=== PATIENT | female | born 1970 | race Caucasian/White ===

== ENCOUNTER 2017-05-17 00:47 | Inpatient (IN) | payer MEDICAID, OTHER ==
[~2017-05-17] VITALS: Ht 160 cm; Wt 74.7 kg
[2017-05-17] VITALS (10 sets, daily range): BP systolic 100–156; BP diastolic 55–82
[2017-05-17] MEDS ORDERED: SODIUM CHLORIDE 0.9% 1,000 ML IV ONE (01:25)
[2017-05-17] MEDS ORDERED: SODIUM CHLORIDE FLUSH 10ML SYR IVF ONE (01:30)
[2017-05-17] MEDS ORDERED: PANTOPRAZOLE 40 MG IV IVPush STA (01:42)
[2017-05-17] MEDS ORDERED: PANTOPRAZOLE 40 MG IV ONE (01:47)
[2017-05-17] MEDS ORDERED: MORPHINE SULFATE 4 MG/ML, 1ML ONE (01:47)
[2017-05-17] MEDS ORDERED: ONDANSETRON 2MG/ML, 2ML ONE (01:48)
[2017-05-17 01:52] LABS: INTERNATIONAL NORMALIZED RATIO 1.21 (0.93-1.1); PROTHROMBIN TIME 12.4 Seconds (9.6-11.5)
[2017-05-17 01:55] LABS: ALANINE AMINOTRANSFERASE 18 U/L (12-78); ALBUMIN 3.4 g/dL (3.4-5.0); ANION GAP 12 mmol/L (5-15); CALCIUM 8.2 mg/dL (8.5-10.1); CHLORIDE 110 mmol/L (98-107)
[2017-05-17 01:58] LABS: ALKALINE PHOSPHATASE 99 U/L (45-117); BILIRUBIN,TOTAL 1.1 mg/dL (0.2-1.0); TOTAL PROTEIN 8.3 g/dL (6.4-8.2)
[2017-05-17] MEDS ORDERED: MORPHINE SULFATE 4 MG/ML, 1ML IVPush PRN ×2 (02:00→03:00)
[2017-05-17] MEDS ORDERED: ONDANSETRON 2MG/ML, 2ML IVPush ONE (02:00)
[2017-05-17] MEDS ORDERED: PLEASE ENTER ALLERGIES MC SCH (02:00)
[2017-05-17 02:31] LABS: BASOPHILS # (AUTO) 0.01 x10^3/uL (0-0.1); BASOPHILS % (AUTO) 0 % (0-1); EOSINOPHILS # (AUTO) 0.08 x10^3/uL (0-0.4); EOSINOPHILS % (AUTO) 1 % (1-7); LYMPHOCYTES % (AUTO) 21 % (22-44); MD SCAN; MEAN CORPUSCULAR HEMOGLOBIN 23.1 pg (27.0-34.8); MEAN CORPUSCULAR HGB CONC 31.5 g/dL (32.4-35.8); MEAN CORPUSCULAR VOLUME 73.4 fL (80-100); MEAN PLATELET VOLUME 9.5 fL (7.4-10.4); MONOCYTES # (AUTO) 0.33 x10^3/uL (0.2-0.8); MONOCYTES % (AUTO) 5 % (2-9); NEUTROPHILS # (AUTO) 4.41 x10^3/uL (1.8-6.8); NEUTROPHILS % (AUTO) 72 % (42-75); PLATELET COUNT 70 x10^3/uL (130-400); RED BLOOD COUNT 3.36 x10^6/uL (3.82-5.3); RED CELL DISTRIBUTION WIDTH 24.1 % (9.6-15.2)
[2017-05-17] MEDS ORDERED: OCTREOTIDE 500 MCG in SODIUM CHLORIDE 0.9% 249 ML IV SCH (03:00)
[2017-05-17] MEDS ORDERED: ONDANSETRON 2MG/ML, 2ML IVPush PRN ×2 (03:00→15:30)
[2017-05-17] MEDS ORDERED: LORA1TAB PO (04:06)
[2017-05-17] MEDS ORDERED: POTA10TA6 PO (04:06)
[2017-05-17] MEDS ORDERED: SPIR25TA3 PO (04:06)
[2017-05-17] MEDS ORDERED: LACT10SO28 PO (04:06)
[2017-05-17] MEDS ORDERED: TRAZ50TA18 PO (04:06)
[2017-05-17] MEDS ORDERED: PANT40TA3 PO (04:06)
[2017-05-17] MEDS ORDERED: FERR325T18 PO (04:06)
[2017-05-17] MEDS ORDERED: FOLI-17 PO (04:06)
[2017-05-17] MEDS ORDERED: PROP10TA PO (04:06)
[2017-05-17] MEDS ORDERED: THIA100T52 PO (04:06)
[2017-05-17] MEDS ORDERED: FURO-93 PO (04:06)
[2017-05-17] MEDS ORDERED: ONDA4TAB7 PO (04:06)
[2017-05-17] MEDS ORDERED: HYDR50TA13 PO (04:06)
[2017-05-17] MEDS ORDERED: GABA300C10 PO (04:06)
[2017-05-17] MEDS ORDERED: TRAM50TA2 PO (04:06)
[2017-05-17] MEDS ORDERED: POTASSIUM CHLORIDE 20 MEQ, MAGNESIUM SULFATE 2 GM, THIAMINE 100 MG, MVI ADULT 10 ML, FO... IV SCH (04:12)
[2017-05-17] MEDS ORDERED: PROMETHAZINE 25 MG/ML, 1ML IM PRN (04:30)
[2017-05-17] MEDS ORDERED: hydrALAzine 20 MG/ML, 1ML IVPush PRN (04:30)
[2017-05-17] MEDS ORDERED: ACETAMINOPHEN 325 MG TABLET PO PRN ×2 (04:30→15:30)
[2017-05-17] MEDS ORDERED: hydrOXyzine 50MG TABLET PO PRN (04:30)
[2017-05-17 05:37] LABS: % IRON SATURATION 4 % (20-55); IRON LEVEL 24 mcg/dL (50-170); TOTAL IRON BINDING CAPACITY 587 mcg/dL (250-450)
[2017-05-17] MEDS: morphine SULFATE 10 MG/ML, 1ML IVPush PRN ×4 (05:56→20:59)
[2017-05-17] MEDS: POTASSIUM CHLORIDE 20 MEQ, MAGNESIUM SULFATE 2 GM, MVI ADULT 10 ML, FOLIC ACID 1 MG in ... IV SCH (05:56)
[2017-05-17] MEDS: SODIUM CHLORIDE 0.9% 1,000 ML IV SCH (05:57)
[2017-05-17] MEDS: CEFTRIAXONE PMX 1GM/50ML 50 ML IV SCH ×2 (05:57→16:47)
[2017-05-17 06:43] LABS: CULTURE INDICATED? YES; MICROSCOPIC INDICATED
[2017-05-17] MEDS ORDERED: PANTOPRAZOLE 40 MG IV IVPush SCH (07:30)
[2017-05-17] MEDS: THIAMINE 100MG TABLET PO SCH (09:00)
[2017-05-17] MEDS: SPIRONOLACTONE 25 MG TABLET PO SCH ×2 (09:00→20:58)
[2017-05-17] MEDS: PROPRANOLOL 10 MG TABLET PO SCH ×3 (09:00→20:58)
[2017-05-17] MEDS: LACTULOSE 10 GM/15 ML UDC PO SCH ×2 (09:00→20:59)
[2017-05-17] MEDS ORDERED: POTASSIUM CHLORIDE 10 MEQ TABLET.ER PO SCH (09:00)
[2017-05-17] MEDS: FUROSEMIDE 20 MG TABLET PO SCH (09:00)
[2017-05-17] MEDS: IRON SUCROSE COMPLEX 100MG/5ML IV SCH (10:13)
[2017-05-17] MEDS: NICOTINE 14MG/24 HR PATCH.TD24 TD SCH (10:14)
[2017-05-17] MEDS: OCTREOTIDE 500 MCG in SODIUM CHLORIDE 0.9% 249 ML IV SCH ×2 (10:46→20:04)
[2017-05-17 14:01] LABS: HCG UR SG 1.018 (1.003-1.030)
[2017-05-17] MEDS ORDERED: PROPOFOL 50 ML ONE (14:37)
[2017-05-17] MEDS ORDERED: FENTANYL PF 100 MCG/2ML ONE (15:14)
[2017-05-17] MEDS ORDERED: hydrALAzine 20 MG/ML, 1ML IV PRN (15:30)
[2017-05-17] MEDS ORDERED: HYDROmorphone 1 MG/ML, 1ML IV PRN (15:30)
[2017-05-17] MEDS ORDERED: HYDROcodone/APAP 7.5-325MG/15ML UDC PO PRN (15:30)
[2017-05-17] MEDS ORDERED: PROMETHAZINE 25 MG/ML, 1ML IV PRN (15:30)
[2017-05-17] MEDS ORDERED: FENTANYL PF 100 MCG/2ML IV PRN (15:30)
[2017-05-17] MEDS ORDERED: OXYcodone 5 MG/5 ML ORAL.SOL UDC PO PRN (15:30)
[2017-05-17] MEDS ORDERED: EPHEDRINE 50 MG/ML, 1ML IVPush PRN (15:30)
[2017-05-17] MEDS ORDERED: LABETALOL 5MG/ML, 20ML IV PRN (15:30)
[2017-05-17] MEDS ORDERED: METOPROLOL 1 MG/ML, 5ML IV PRN (15:30)
[2017-05-17] MEDS ORDERED: PROMETHAZINE 12.5 MG SUPP PR PRN (15:30)
[2017-05-17] MEDS: TRAZODONE 50MG TABLET PO SCH (20:58)
[2017-05-17] MEDS: GABAPENTIN 300 MG CAPSULE PO SCH (20:58)
[2017-05-17] MEDS: LORazepam 1MG TABLET PO PRN (22:34)
[2017-05-18 00:18] VITALS: BP 121/75
[2017-05-18] MEDS: morphine SULFATE 10 MG/ML, 1ML IVPush PRN ×2 (01:24→04:51)
[2017-05-18] MEDS: CEFTRIAXONE PMX 1GM/50ML 50 ML IV SCH ×2 (05:00→11:18)
[2017-05-18 05:38] LABS: MEAN CORPUSCULAR HEMOGLOBIN 24.6 pg (27.0-34.8); MEAN CORPUSCULAR HGB CONC 32.2 g/dL (32.4-35.8); MEAN CORPUSCULAR VOLUME 76.3 fL (80-100); MEAN PLATELET VOLUME 9.1 fL (7.4-10.4); PLATELET COUNT 55 x10^3/uL (130-400); RED BLOOD COUNT 3.69 x10^6/uL (3.82-5.3); RED CELL DISTRIBUTION WIDTH 22.1 % (9.6-15.2)
[2017-05-18 06:11] LABS: CHLORIDE 108 mmol/L (98-107)
[2017-05-18] MEDS: OCTREOTIDE 500 MCG in SODIUM CHLORIDE 0.9% 249 ML IV SCH (06:15)
[2017-05-18 06:19] LABS: ALANINE AMINOTRANSFERASE 16 U/L (12-78); ALBUMIN 2.9 g/dL (3.4-5.0); ALKALINE PHOSPHATASE 84 U/L (45-117); ANION GAP 9 mmol/L (5-15); BILIRUBIN,TOTAL 1.3 mg/dL (0.2-1.0); CALCIUM 7.5 mg/dL (8.5-10.1); TOTAL PROTEIN 7.1 g/dL (6.4-8.2)
[2017-05-18 06:55] LABS: BASOPHILS # (AUTO) 0.02 x10^3/uL (0-0.1); BASOPHILS % (AUTO) 1 % (0-1); EOSINOPHILS # (AUTO) 0.14 x10^3/uL (0-0.4); EOSINOPHILS % (AUTO) 5 % (1-7); LYMPHOCYTES # (AUTO) 0.86 x10^3/uL (1-3.4); LYMPHOCYTES % (AUTO) 29 % (22-44); MD SCAN; MONOCYTES # (AUTO) 0.44 x10^3/uL (0.2-0.8); MONOCYTES % (AUTO) 15 % (2-9); NEUTROPHILS # (AUTO) 1.55 x10^3/uL (1.8-6.8); NEUTROPHILS % (AUTO) 52 % (42-75)
[2017-05-18 07:21] VITALS: BP 116/77
[2017-05-18] MEDS: IRON SUCROSE COMPLEX 100MG/5ML IV SCH (08:05)
[2017-05-18] MEDS: THIAMINE 100MG TABLET PO SCH (08:05)
[2017-05-18] MEDS: PROPRANOLOL 10 MG TABLET PO SCH ×2 (08:06→21:22)
[2017-05-18] MEDS: FUROSEMIDE 20 MG TABLET PO SCH (08:08)
[2017-05-18] MEDS: PANTOPRAZOLE 20MG TABLET PO SCH ×2 (08:08→20:00)
[2017-05-18] MEDS: SPIRONOLACTONE 25 MG TABLET PO SCH ×2 (08:08→21:21)
[2017-05-18] MEDS: NICOTINE 14MG/24 HR PATCH.TD24 TD SCH (08:09)
[2017-05-18] MEDS: LACTULOSE 10 GM/15 ML UDC PO SCH ×2 (08:12→21:21)
[2017-05-18] MEDS: ONDANSETRON 2MG/ML, 2ML IVPush PRN (08:25)
[2017-05-18] MEDS: SODIUM CHLORIDE 0.9% 1,000 ML IV SCH (11:19)
[2017-05-18 12:43] VITALS: BP 131/83
[2017-05-18] MEDS: POTASSIUM CHLORIDE 20 MEQ, MAGNESIUM SULFATE 2 GM, MVI ADULT 10 ML, FOLIC ACID 1 MG in ... IV SCH (13:18)
[2017-05-18 19:39] VITALS: BP 152/77
[2017-05-18] MEDS: TRAZODONE 50MG TABLET PO SCH (21:21)
[2017-05-18] MEDS: GABAPENTIN 300 MG CAPSULE PO SCH (21:21)
[2017-05-18] MEDS: LORazepam 1MG TABLET PO PRN (21:22)
[2017-05-19 00:55] VITALS: BP 108/65
[2017-05-19 04:56] LABS: MEAN CORPUSCULAR HEMOGLOBIN 24.2 pg (27.0-34.8); MEAN CORPUSCULAR HGB CONC 31.5 g/dL (32.4-35.8); MEAN CORPUSCULAR VOLUME 76.8 fL (80-100); MEAN PLATELET VOLUME 9.3 fL (7.4-10.4); PLATELET COUNT 53 x10^3/uL (130-400); RED BLOOD COUNT 3.55 x10^6/uL (3.82-5.3); RED CELL DISTRIBUTION WIDTH 22.3 % (9.6-15.2)
[2017-05-19 04:58] LABS: CHLORIDE 108 mmol/L (98-107)
[2017-05-19] MEDS: SODIUM CHLORIDE 0.9% 1,000 ML IV SCH ×2 (05:00→05:48)
[2017-05-19 05:03] LABS: ALBUMIN 2.8 g/dL (3.4-5.0); ANION GAP 10 mmol/L (5-15); CALCIUM 7.8 mg/dL (8.5-10.1); CREATININE 0.69 mg/dL (0.55-1.02)
[2017-05-19 06:03] LABS: BASOPHILS # (AUTO) 0.03 x10^3/uL (0-0.1); BASOPHILS % (AUTO) 1 % (0-1); EOSINOPHILS # (AUTO) 0.11 x10^3/uL (0-0.4); EOSINOPHILS % (AUTO) 3 % (1-7); LYMPHOCYTES # (AUTO) 0.83 x10^3/uL (1-3.4); LYMPHOCYTES % (AUTO) 19 % (22-44); MD MORPH REVIEW ONLY; MONOCYTES # (AUTO) 0.45 x10^3/uL (0.2-0.8); MONOCYTES % (AUTO) 11 % (2-9); NEUTROPHILS # (AUTO) 2.88 x10^3/uL (1.8-6.8); NEUTROPHILS % (AUTO) 67 % (42-75)
[2017-05-19 06:04] LABS: ANISOCYTOSIS 2+; HYPOCHROMIA 1+; MICROCYTOSIS 2+; POLYCHROMASIA 1+
[2017-05-19 06:05] LABS: <PLATELET ESTIMATE> DECREASED; <PLT MORPHOLOGY> NORMAL PLT MORPH
[2017-05-19] MEDS ORDERED: CIPR500T3 PO (07:34)
[2017-05-19] MEDS ORDERED: PANT40TA3 PO (07:34)
[2017-05-19 08:15] VITALS: BP 107/68
[2017-05-19] MEDS: LACTULOSE 10 GM/15 ML UDC PO SCH (09:00)
[2017-05-19] MEDS: NICOTINE 14MG/24 HR PATCH.TD24 TD SCH (09:22)
[2017-05-19] MEDS: PROPRANOLOL 10 MG TABLET PO SCH (09:23)
[2017-05-19] MEDS: THIAMINE 100MG TABLET PO SCH (09:23)
[2017-05-19] MEDS: SPIRONOLACTONE 25 MG TABLET PO SCH (09:23)
[2017-05-19] MEDS: CEFTRIAXONE PMX 1GM/50ML 50 ML IV SCH (09:23)
[2017-05-19] MEDS: FUROSEMIDE 20 MG TABLET PO SCH (09:23)
[2017-05-19] MEDS: PANTOPRAZOLE 20MG TABLET PO SCH (09:23)
[2017-05-19] MEDS: IRON SUCROSE COMPLEX 100MG/5ML IV SCH (09:24)
[2017-05-19] MEDS: ONDANSETRON 2MG/ML, 2ML IVPush PRN (09:46)
== END 2017-05-19 13:51 | disposition home or self-care (01) | DRG 377 ==
LOC: ED 01:32 → EDIP 02:49 → 4EST 03:43
PROVIDERS: ADMIT Hospitalist; ATTEND Hospitalist
PROC: 0DJ08ZZ Inspection of Upper Intestinal Tract, Via Natural or Artificial Opening Endoscopic (ICD-10-PCS; 2017-05-17)
PROC: 30233N1 Transfusion of Nonautologous Red Blood Cells into Peripheral Vein, Percutaneous Approach (ICD-10-PCS; principal; 2017-05-17 16:00)
DX: K29.21 Alcoholic gastritis with bleeding (principal); E43 Unspecified severe protein-calorie malnutrition; I81 Portal vein thrombosis; I85.11 Secondary esophageal varices with bleeding; D68.9 Coagulation defect, unspecified; K76.6 Portal hypertension; D69.6 Thrombocytopenia, unspecified; D62 Acute posthemorrhagic anemia; F10.239 Alcohol dependence with withdrawal, unspecified; D50.9 Iron deficiency anemia, unspecified; K70.11 Alcoholic hepatitis with ascites; K70.31 Alcoholic cirrhosis of liver with ascites; F17.210 Nicotine dependence, cigarettes, uncomplicated; G89.29 Other chronic pain; I10 Essential (primary) hypertension; Z82.49 Family history of ischemic heart disease and other diseases of the circulatory system
CPT/HCPCS: 36415; 36430; 74022; 80048; 80053; 80307; 81001; 81025; 82040; 83540; 83550; 83690; 83735; 84100; 85014; 85018; 85025; 85610; 85730; 86850; 86900; 86923; 87086; 96374; 96375; J0696; J1756; J2354; J2405; J2704; J3010; J3475; J3480; J7042; C9113; J2270; J7030; J7050; P9016

== ENCOUNTER 2017-12-10 23:41 | Inpatient (IN) | payer MEDICAID ==
[~2017-12-10] VITALS: Ht 160 cm; Wt 84.0 kg
[~2017-12-10 23:41] MED LIST: CIPR500T3 PO; FERR325T18 PO; FOLI-17 PO; FURO-93 PO; GABA300C10 PO; HYDR50TA13 PO; LACT10SO28 PO; LORA1TAB PO; ONDA4TAB7 PO; PANT40TA3 PO; POTA10TA6 PO; PROP10TA PO; SPIR25TA5 PO; THIA100T52 PO; TRAM50TA2 PO; TRAZ-136 PO
[2017-12-10] MEDS ORDERED: OCTREOTIDE 500 MCG in SODIUM CHLORIDE 0.9% 249 ML IV PRN (23:43)
[2017-12-10] MEDS ORDERED: SODIUM CHLORIDE 0.9% 1,000 ML IV ONE (23:43)
[2017-12-10] MEDS: PANTOPRAZOLE 80 MG in SODIUM CHLORIDE 0.9% 100 ML IV SCH (23:43)
[2017-12-10] MEDS ORDERED: METOCLOPRAMIDE 5 MG/ML, 2ML ONE (23:47)
[2017-12-10] MEDS ORDERED: PANTOPRAZOLE 40 MG IV ONE (23:59)
[2017-12-10] MEDS ORDERED: OCTREOTIDE 100MCG/ML, 1ML (0.1MG/ML) ONE (23:59)
[2017-12-11] VITALS (20 sets, daily range): BP systolic 100–137; BP diastolic 48–74
[2017-12-11] MEDS ORDERED: PANTOPRAZOLE 40 MG IV IVPush ONE
[2017-12-11] MEDS ORDERED: SODIUM CHLORIDE 0.9% 1,000ML IVBOLUS ONE
[2017-12-11] MEDS ORDERED: SODIUM CHLORIDE FLUSH 10ML SYR IVF ONE
[2017-12-11] MEDS ORDERED: OCTREOTIDE 100MCG/ML, 1ML (0.1MG/ML) IV ONE
[2017-12-11] MEDS ORDERED: METOCLOPRAMIDE 5 MG/ML, 2ML IVPush ONE
[2017-12-11] MEDS ORDERED: POTA20TA89 PO (00:06)
[2017-12-11 00:17] LABS: MEAN CORPUSCULAR HEMOGLOBIN 25.7 pg (27.0-34.8); MEAN CORPUSCULAR HGB CONC 32.3 g/dL (32.4-35.8); MEAN CORPUSCULAR VOLUME 79.8 fL (80-100); MEAN PLATELET VOLUME 8.5 fL (7.4-10.4); PLATELET COUNT 150 x10^3/uL (130-400); RED BLOOD COUNT 2.15 x10^6/uL (3.82-5.3)
[2017-12-11 00:20] LABS: RED CELL DISTRIBUTION WIDTH 21.5 % (9.6-15.2)
[2017-12-11 00:25] LABS: ALANINE AMINOTRANSFERASE 26 U/L (12-78); ALBUMIN 2.3 g/dL (3.4-5.0); ANION GAP 13 mmol/L (5-15); CALCIUM 7.6 mg/dL (8.5-10.1); CHLORIDE 107 mmol/L (98-107); CREATININE 1.13 mg/dL (0.55-1.02)
[2017-12-11 00:27] LABS: ALKALINE PHOSPHATASE 82 U/L (45-117); BILIRUBIN,TOTAL 1.2 mg/dL (0.2-1.0); TOTAL PROTEIN 5.6 g/dL (6.4-8.2)
[2017-12-11 00:36] LABS: INTERNATIONAL NORMALIZED RATIO 1.78 (0.93-1.1); PROTHROMBIN TIME 18.3 Seconds (9.6-11.5)
[2017-12-11 00:40] LABS: BASOPHILS # (AUTO) 0.04 x10^3/uL (0-0.1); BASOPHILS % (AUTO) 0 % (0-1); EOSINOPHILS # (AUTO) 0.01 x10^3/uL (0-0.4); EOSINOPHILS % (AUTO) 0 % (1-7); LYMPHOCYTES # (AUTO) 2.68 x10^3/uL (1-3.4); LYMPHOCYTES % (AUTO) 14 % (22-44); MD MORPH REVIEW ONLY; MONOCYTES # (AUTO) 1.03 x10^3/uL (0.2-0.8); MONOCYTES % (AUTO) 5 % (2-9); NEUTROPHILS # (AUTO) 16.09 x10^3/uL (1.8-6.8); NEUTROPHILS % (AUTO) 81 % (42-75)
[2017-12-11 00:41] LABS: ANISOCYTOSIS 2+; MICROCYTOSIS 2+
[2017-12-11 00:42] LABS: HYPOCHROMIA 1+; POLYCHROMASIA 1+
[2017-12-11 00:43] LABS: <PLATELET ESTIMATE> ADEQUATE; <PLT MORPHOLOGY> NORMAL PLT MORPH
[2017-12-11] MEDS ORDERED: LORazepam 2 MG/ML, 1ML IVPush PRN ×2 (01:00→08:00)
[2017-12-11] MEDS ORDERED: LORazepam 2 MG/ML, 1ML ONE (01:00)
[2017-12-11] MEDS ORDERED: CEFTRIAXONE 500 MG in DEXTROSE 5% 50 ML IV SCH (01:00)
[2017-12-11] MEDS: PANTOPRAZOLE 80 MG in SODIUM CHLORIDE 0.9% 100 ML IV SCH ×4 (01:58→19:31)
[2017-12-11] MEDS ORDERED: OCTREOTIDE 500 MCG in DEXTROSE 5% 249 ML IV SCH (01:58)
[2017-12-11] MEDS ORDERED: OCTREOTIDE 50 MCG/ML, 1ML (0.05MG/ML) IV ONE (02:00)
[2017-12-11] MEDS ORDERED: ONDANSETRON 2MG/ML, 2ML IV PRN ×2 (02:00→10:00)
[2017-12-11] MEDS ORDERED: PHYTONADIONE 10 MG/ML, 1ML SQ ONE (02:00)
[2017-12-11] MEDS ORDERED: LORazepam 2 MG/ML, 1ML IV PRN ×3 (02:00)
[2017-12-11 06:24] LABS: ANION GAP 8 mmol/L (5-15); CALCIUM 6.4 mg/dL (8.5-10.1); CHLORIDE 113 mmol/L (98-107); CREATININE 0.85 mg/dL (0.55-1.02)
[2017-12-11 06:43] LABS: BASOPHILS # (AUTO) 0.02 x10^3/uL (0-0.1); BASOPHILS % (AUTO) 0 % (0-1); EOSINOPHILS # (AUTO) 0.01 x10^3/uL (0-0.4); EOSINOPHILS % (AUTO) 0 % (1-7); LYMPHOCYTES # (AUTO) 1.43 x10^3/uL (1-3.4); LYMPHOCYTES % (AUTO) 13 % (22-44); MD SCAN; MEAN CORPUSCULAR HEMOGLOBIN 28.7 pg (27.0-34.8); MEAN CORPUSCULAR HGB CONC 33.7 g/dL (32.4-35.8); MEAN CORPUSCULAR VOLUME 85.1 fL (80-100); MEAN PLATELET VOLUME 7.9 fL (7.4-10.4); MONOCYTES % (AUTO) 7 % (2-9); NEUTROPHILS % (AUTO) 80 % (42-75); PLATELET COUNT 57 x10^3/uL (130-400); RED BLOOD COUNT 3.01 x10^6/uL (3.82-5.3); RED CELL DISTRIBUTION WIDTH 18.1 % (9.6-15.2)
[2017-12-11] MEDS ORDERED: MIDAZOLAM 1 MG/ML, 2ML ONE (09:30)
[2017-12-11] MEDS ORDERED: FENTANYL PF 100 MCG/2ML ONE (09:30)
[2017-12-11] MEDS ORDERED: SUCCINYLCHOLINE 20 MG/ML, 10ML ONE (09:56)
[2017-12-11] MEDS ORDERED: PROPOFOL 10 MG/ML, 20ML ONE (09:56)
[2017-12-11] MEDS ORDERED: FENTANYL PF 100 MCG/2ML IV PRN (10:00)
[2017-12-11] MEDS ORDERED: MIDAZOLAM 1 MG/ML, 2ML IV PRN (10:00)
[2017-12-11] MEDS ORDERED: ONDANSETRON ODT 8 MG PO PRN (10:00)
[2017-12-11] MEDS ORDERED: CALCIUM CHLORIDE 13.6 MEQ in SODIUM CHLORIDE 0.9% 100 ML IV ONE (10:30)
[2017-12-11] MEDS ORDERED: MAGNESIUM SULFATE PMX 4GM/100M 100 ML IV ONE (10:30)
[2017-12-11] MEDS: CEFTRIAXONE 1,000 MG in SODIUM CHLORIDE 0.9% 50 ML IV SCH (11:23)
[2017-12-11] MEDS: OCTREOTIDE 500 MCG in SODIUM CHLORIDE 0.9% 249 ML IV SCH ×2 (11:28→21:33)
[2017-12-11] MEDS: LACTULOSE 20 GM/30 ML UDC PO SCH (11:30)
[2017-12-11] MEDS: PHYTONADIONE 10 MG/ML, 1ML SQ SCH (11:31)
[2017-12-11] MEDS: POTASSIUM CHLORIDE 20 MEQ, MAGNESIUM SULFATE 1 GM, MVI ADULT 10 ML, THIAMINE 200 MG, FO... IV SCH (12:26)
[2017-12-11] MEDS ORDERED: LORazepam 1MG TABLET PO ONE (21:30)
[2017-12-12 04:19] LABS: ALANINE AMINOTRANSFERASE 46 U/L (12-78); ALBUMIN 2.2 g/dL (3.4-5.0); ANION GAP 8 mmol/L (5-15); CALCIUM 6.9 mg/dL (8.5-10.1); CHLORIDE 113 mmol/L (98-107); CREATININE 0.71 mg/dL (0.55-1.02)
[2017-12-12 04:22] LABS: ALKALINE PHOSPHATASE 62 U/L (45-117); BILIRUBIN,TOTAL 1.1 mg/dL (0.2-1.0); TOTAL PROTEIN 4.9 g/dL (6.4-8.2)
[2017-12-12 04:25] LABS: MEAN CORPUSCULAR HEMOGLOBIN 29.6 pg (27.0-34.8); MEAN CORPUSCULAR HGB CONC 34.1 g/dL (32.4-35.8); MEAN CORPUSCULAR VOLUME 86.7 fL (80-100); RED BLOOD COUNT 3.16 x10^6/uL (3.82-5.3); RED CELL DISTRIBUTION WIDTH 17.8 % (9.6-15.2)
[2017-12-12 04:47] LABS: INTERNATIONAL NORMALIZED RATIO 1.42 (0.93-1.1); PROTHROMBIN TIME 14.7 Seconds (9.6-11.5)
[2017-12-12] MEDS ORDERED: POTASSIUM CHLORIDE 40 MEQ in SODIUM CHLORIDE 0.9% 100 ML IV ONE (05:30)
[2017-12-12 05:42] LABS: BASOPHILS # (AUTO) 0.02 x10^3/uL (0-0.1); BASOPHILS % (AUTO) 0 % (0-1); EOSINOPHILS # (AUTO) 0.25 x10^3/uL (0-0.4); EOSINOPHILS % (AUTO) 5 % (1-7); LYMPHOCYTES # (AUTO) 1.09 x10^3/uL (1-3.4); LYMPHOCYTES % (AUTO) 22 % (22-44); MD SCAN; MEAN PLATELET VOLUME 8.7 fL (7.4-10.4); MONOCYTES # (AUTO) 0.38 x10^3/uL (0.2-0.8); MONOCYTES % (AUTO) 8 % (2-9); NEUTROPHILS # (AUTO) 3.23 x10^3/uL (1.8-6.8); NEUTROPHILS % (AUTO) 65 % (42-75)
[2017-12-12 05:44] LABS: PLATELET COUNT 29 x10^3/uL (130-400)
[2017-12-12] MEDS: OCTREOTIDE 500 MCG in SODIUM CHLORIDE 0.9% 249 ML IV SCH ×3 (06:17→19:41)
[2017-12-12] MEDS: PANTOPRAZOLE 80 MG in SODIUM CHLORIDE 0.9% 100 ML IV SCH (07:58)
[2017-12-12] MEDS ORDERED: SODIUM PHOSPHATE 20 MMOL in SODIUM CHLORIDE 0.9% 500 ML IV ONE (08:00)
[2017-12-12] MEDS: POTASSIUM CHLORIDE 20 MEQ TAB.ER.PRT PO SCH ×2 (08:00→20:32)
[2017-12-12] MEDS: LACTULOSE 20 GM/30 ML UDC PO SCH (08:36)
[2017-12-12] MEDS: PHYTONADIONE 10 MG/ML, 1ML SQ SCH (08:37)
[2017-12-12] MEDS: PANTOPRAZOLE 40 MG IV IVPush SCH ×2 (11:21→23:51)
[2017-12-12] MEDS: CEFTRIAXONE 1,000 MG in SODIUM CHLORIDE 0.9% 50 ML IV SCH (11:21)
[2017-12-12] MEDS ORDERED: LORazepam 1MG TABLET PO PRN (13:30)
[2017-12-12] MEDS: hydrOXyzine 50MG TABLET PO PRN (14:58)
[2017-12-12] MEDS: POTASSIUM CHLORIDE 20 MEQ, MAGNESIUM SULFATE 1 GM, MVI ADULT 10 ML, THIAMINE 200 MG, FO... IV SCH (17:32)
[2017-12-12 19:34] VITALS: BP 147/86
[2017-12-12] MEDS ORDERED: GABAPENTIN 300 MG CAPSULE PO SCH (21:00)
[2017-12-13 00:45] VITALS: BP 123/76
[2017-12-13] MEDS: hydrOXyzine 50MG TABLET PO PRN (05:00)
[2017-12-13 05:07] LABS: MEAN CORPUSCULAR HEMOGLOBIN 29.5 pg (27.0-34.8); MEAN CORPUSCULAR VOLUME 86.8 fL (80-100); RED BLOOD COUNT 3.21 x10^6/uL (3.82-5.3); RED CELL DISTRIBUTION WIDTH 18.3 % (9.6-15.2)
[2017-12-13 05:17] LABS: ANION GAP 9 mmol/L (5-15); CALCIUM 6.9 mg/dL (8.5-10.1); CHLORIDE 111 mmol/L (98-107); CREATININE 0.63 mg/dL (0.55-1.02)
[2017-12-13 05:29] LABS: MEAN PLATELET VOLUME 8.7 fL (7.4-10.4)
[2017-12-13 05:31] LABS: PLATELET COUNT 26 x10^3/uL (130-400)
[2017-12-13 05:46] LABS: BASOPHILS # (AUTO) 0.01 x10^3/uL (0-0.1); BASOPHILS % (AUTO) 0 % (0-1); EOSINOPHILS # (AUTO) 0.23 x10^3/uL (0-0.4); EOSINOPHILS % (AUTO) 5 % (1-7); LYMPHOCYTES % (AUTO) 19 % (22-44); MD SCAN; MONOCYTES # (AUTO) 0.39 x10^3/uL (0.2-0.8); MONOCYTES % (AUTO) 8 % (2-9); NEUTROPHILS # (AUTO) 3.24 x10^3/uL (1.8-6.8); NEUTROPHILS % (AUTO) 68 % (42-75)
[2017-12-13] MEDS: OCTREOTIDE 500 MCG in SODIUM CHLORIDE 0.9% 249 ML IV SCH (06:12)
[2017-12-13 06:50] VITALS: BP 131/80
[2017-12-13] MEDS: LACTULOSE 20 GM/30 ML UDC PO SCH (08:49)
[2017-12-13] MEDS: PHYTONADIONE 10 MG/ML, 1ML SQ SCH (08:49)
[2017-12-13] MEDS: CEFTRIAXONE 1,000 MG in SODIUM CHLORIDE 0.9% 50 ML IV SCH (10:37)
[2017-12-13] MEDS: PANTOPRAZOLE 40 MG IV IVPush SCH (10:43)
[2017-12-13] MEDS: POTASSIUM CHLORIDE 20 MEQ, MAGNESIUM SULFATE 1 GM, MVI ADULT 10 ML, THIAMINE 200 MG, FO... IV SCH (12:00)
[2017-12-13 12:10] VITALS: BP 124/81
[2017-12-13] MEDS ORDERED: PANT40TA3 PO (13:28)
== END 2017-12-13 17:27 | disposition home or self-care (01) | DRG 432 ==
LOC: ED 23:59 → EDIP 12-11 00:18 → CCU 12-11 02:31 → 4WST 12-12 13:18 → 4EST 12-12 18:12 → DCLOUNGE 12-13 17:15
PROVIDERS: ADMIT Family Medicine; ATTEND Family Medicine
PROC: 30233L1 Transfusion of Nonautologous Fresh Plasma into Peripheral Vein, Percutaneous Approach (ICD-10-PCS; 2017-12-11)
PROC: 30233N1 Transfusion of Nonautologous Red Blood Cells into Peripheral Vein, Percutaneous Approach (ICD-10-PCS; 2017-12-11)
PROC: 30233K1 Transfusion of Nonautologous Frozen Plasma into Peripheral Vein, Percutaneous Approach (ICD-10-PCS; 2017-12-11)
PROC: 02HV33Z Insertion of Infusion Device into Superior Vena Cava, Percutaneous Approach (ICD-10-PCS; 2017-12-11)
PROC: B548ZZA Ultrasonography of Superior Vena Cava, Guidance (ICD-10-PCS; 2017-12-11)
PROC: 06L38CZ Occlusion of Esophageal Vein with Extraluminal Device, Via Natural or Artificial Opening Endoscopic (ICD-10-PCS; principal; 2017-12-11 10:00)
DX: K70.30 Alcoholic cirrhosis of liver without ascites (principal); E43 Unspecified severe protein-calorie malnutrition; I85.11 Secondary esophageal varices with bleeding; R57.8 Other shock; D62 Acute posthemorrhagic anemia; D68.9 Coagulation defect, unspecified; E87.2 Acidosis; K76.6 Portal hypertension; R65.10 Systemic inflammatory response syndrome (SIRS) of non-infectious origin without acute organ dysfunction; K72.90 Hepatic failure, unspecified without coma; D69.59 Other secondary thrombocytopenia; E16.2 Hypoglycemia, unspecified; E83.51 Hypocalcemia; E86.1 Hypovolemia; K31.7 Polyp of stomach and duodenum; I95.9 Hypotension, unspecified; K31.89 Other diseases of stomach and duodenum; F10.20 Alcohol dependence, uncomplicated; F17.210 Nicotine dependence, cigarettes, uncomplicated; G89.29 Other chronic pain; I10 Essential (primary) hypertension; Z82.49 Family history of ischemic heart disease and other diseases of the circulatory system; Z86.718 Personal history of other venous thrombosis and embolism; Z88.0 Allergy status to penicillin; Z88.8 Allergy status to other drugs, medicaments and biological substances; Z88.1 Allergy status to other antibiotic agents; Z90.49 Acquired absence of other specified parts of digestive tract; Z68.32 Body mass index [BMI] 32.0-32.9, adult
CPT/HCPCS: 36415; 36430; 36556; 71045; 80048; 80053; 80307; 82140; 82306; 82330; 83605; 83690; 83735; 83970; 84100; 85014; 85018; 85025; 85610; 85730; 86850; 86900; 86923; 87040; 87081; 93005; 96361; 96374; 96375; G0378; J0696; J2250; J2354; J2704; J3010; J3411; J3430; J3475; J3480; J7060; C9113; J0330; J2060; J2765; J7030; J7040; J7050; P9016; P9017

== ENCOUNTER 2018-09-02 02:46 | Inpatient (IN) | payer MEDICAID ==
[~2018-09-02] VITALS: Ht 160 cm; Wt 69.9 kg
[~2018-09-02 02:46] MED LIST changes: +LASIX; +LORAZEPAM; +POTA20TA89 PO; +POTASSIUM; -PROP10TA PO; +PROP10TA16 PO; +TRAMADOL; -TRAZ-136 PO; +TRAZ50TA66 PO; +VITAMIN D
--- NOTE | 2018-09-02 02:59 | NUR ---
BIB [facility] FOR C/O BLOODY STOOL AND VOMITING BLOOD THIS AM. PT. REPORTS HX OF CIRRHOSIS AND ESOPHAGEAL VARICES. PT. STATES "I HAD 2 LARGE BEERS RIGHT BEFORE I CAME HERE." "I GO ON FUN WEEKENDS SOMETIMES, I DON'T ALWAYS DRINK ANYMORE." PT. PLACED ON CONTINUOUS PULSE OX AND B/P MONIOTRS. IV AND 300ML NS EN ROUTE. FSBS FOR EMS 161. SKIN PWD. PT. A&O X 4 WITH STRONG ETOH ODOR. CALL LIGHT IN REACH. ALL SAFETY MEASURES OBSERVED. AWAITING PROVIDER EVAL.
[2018-09-02] MEDS ORDERED: PANTOPRAZOLE 40 MG IV IVPush ONE (03:00)
[2018-09-02] MEDS ORDERED: ONDANSETRON ODT 4 MG PO ONE (03:00)
[2018-09-02] MEDS ORDERED: OCTREOTIDE 100MCG/ML, 1ML (0.1MG/ML) IV ONE (03:00)
--- NOTE | 2018-09-02 03:11 | NUR ---
DR. GROVES AT BS TO EVAL PT. AND DISCUSS POC.
[2018-09-02] MEDS ORDERED: PANTOPRAZOLE 40 MG IV ONE (03:24)
[2018-09-02] MEDS ORDERED: OCTREOTIDE 100MCG/ML, 1ML (0.1MG/ML) ONE (03:24)
[2018-09-02] MEDS ORDERED: ONDANSETRON ODT 4 MG ONE (03:24)
[2018-09-02 03:29] LABS: MEAN CORPUSCULAR HEMOGLOBIN 23.2 pg (27.0-34.8); MEAN CORPUSCULAR HGB CONC 30.9 g/dL (32.4-35.8); MEAN CORPUSCULAR VOLUME 75.3 fL (80-100); PLATELET COUNT 137 x10^3/uL (130-400); RED BLOOD COUNT 3.98 x10^6/uL (3.82-5.3); RED CELL DISTRIBUTION WIDTH 25.3 % (9.6-15.2)
[2018-09-02] MEDS ORDERED: MORPHINE SULFATE 4 MG/ML, 1ML IVPush PRN (03:30)
[2018-09-02 03:41] LABS: ALANINE AMINOTRANSFERASE 36 U/L (12-78); ALBUMIN 3.1 g/dL (3.4-5.0); ANION GAP 11 mmol/L (5-15); CHLORIDE 107 mmol/L (98-107)
[2018-09-02 03:43] LABS: ALKALINE PHOSPHATASE 144 U/L (45-117); BILIRUBIN,TOTAL 0.7 mg/dL (0.2-1.0); TOTAL PROTEIN 8.2 g/dL (6.4-8.2)
[2018-09-02 03:47] LABS: INTERNATIONAL NORMALIZED RATIO 1.26 (0.93-1.1); PROTHROMBIN TIME 13.1 Seconds (9.6-11.5)
--- NOTE | 2018-09-02 03:54 | NUR ---
PT. MEDICATED PER MAR. DENIES OTHER NEEDS AT THIS TIME. PLACED ON O2 PT. SAT DROPPED TO 88% WHEN SLEEPING. PT. HAS ALL MONITORS IN PLACE. CALL LIGHT IN REACH. ALL SAFETY MEASURES OBSERVED.
[2018-09-02 04:06] LABS: ANISOCYTOSIS 1+; BASOPHILS % (AUTO) 0 % (0-1); EOSINOPHILS % (AUTO) 3 % (1-7); HYPOCHROMIA 1+; LYMPHOCYTES # (AUTO) 1.67 x10^3/uL (1-3.4); LYMPHOCYTES % (AUTO) 25 % (22-44); MD MORPH REVIEW ONLY; MICROCYTOSIS 1+; MONOCYTES # (AUTO) 0.65 x10^3/uL (0.2-0.8); MONOCYTES % (AUTO) 10 % (2-9); NEUTROPHILS # (AUTO) 4.19 x10^3/uL (1.8-6.8); NEUTROPHILS % (AUTO) 62 % (42-75); POLYCHROMASIA 1+
[2018-09-02 04:07] LABS: <PLATELET ESTIMATE> ADEQUATE; <PLT MORPHOLOGY> NORMAL PLT MORPH; TARGET CELLS 1+
[2018-09-02] MEDS ORDERED: POTASSIUM CHLORIDE 20 MEQ in SODIUM CHLORIDE 0.9% 250 ML IV ONE (04:30)
[2018-09-02] MEDS ORDERED: MORPHINE SULFATE 4 MG/ML, 1ML ONE (04:40)
[2018-09-02] MEDS ORDERED: OCTREOTIDE 500 MCG in SODIUM CHLORIDE 0.9% 249 ML IV PRN (04:43)
--- NOTE | 2018-09-02 04:54 | NUR ---
CALLED PHARMACY TO ASK IF POTASSIUM IN NS AND OCTREOTIDE ARE COMPATABLE; PER PHARMACY THEY ARE MED REQUEST SENT TO PHARMACY.
[2018-09-02] MEDS ORDERED: LACT10SO28 PO (05:22)
[2018-09-02] MEDS ORDERED: POTA20TA89 PO (05:22)
[2018-09-02] MEDS ORDERED: CYCL-259 PO (05:22)
[2018-09-02] MEDS ORDERED: TRAZ50TA66 PO (05:22)
[2018-09-02] MEDS ORDERED: LORA1TAB PO (05:22)
[2018-09-02] MEDS ORDERED: TRAM50TA2 PO (05:22)
[2018-09-02] MEDS ORDERED: FURO20TA3 PO (05:22)
[2018-09-02] MEDS ORDERED: PANT40TA5 PO (05:22)
[2018-09-02] MEDS ORDERED: FOLI-17 PO (05:22)
[2018-09-02] MEDS ORDERED: THIA100T67 PO (05:22)
[2018-09-02] MEDS ORDERED: ONDA4TAB7 PO (05:22)
--- NOTE | 2018-09-02 05:27 | NUR ---
PT. PROVIDED WITH ICE CHIPS PER REQUEST AND AFTER OK FROM DR. GROVES. PT. STATES "I TOOK ALL MY MEDS ABOUT A WEEK AGO, I DON'T LIKE TO TAKE THEM WHEN I AM DRINKING BECAUSE I DON'T WANT TO DABLLE IN THAT AND I HAVE BEEN DRINKING FOR THE LAST 4 DAYS."
--- NOTE | 2018-09-02 05:31 | NUR ---
DISCUSSED B/P WITH DR. GROVES. NEW ORDER FOR 1L NS BOLUS.
--- NOTE | 2018-09-02 05:36 | NUR ---
REPORT TO BALA LEHMAN. FLOOR READY FOR PT. TRANSPORT. [facility] MADE AWARE OF B/P AND NEW ORDER FOR BOLUS. HANGING BOLUS NOW.
[2018-09-02 06:00] VITALS: BP_SYST 102; BP_SYST 104; BP_DIAS 64; BP_DIAS 65
[2018-09-02] MEDS ORDERED: SODIUM CHLORIDE 0.9% 1,000ML IVBOLUS ONE (06:00)
[2018-09-02 07:22] VITALS: BP 100/64
[2018-09-02] MEDS ORDERED: DOCUSATE 100 MG CAPSULE PO PRN (07:30)
[2018-09-02] MEDS ORDERED: morphine SULFATE 10 MG/ML, 1ML IVPush PRN (07:30)
[2018-09-02] MEDS ORDERED: LORazepam 1MG TABLET PO PRN (07:30)
[2018-09-02] MEDS ORDERED: ONDANSETRON 2MG/ML, 2ML IVPush PRN (07:30)
[2018-09-02] MEDS ORDERED: hydrALAzine 20 MG/ML, 1ML IVPush PRN (07:30)
[2018-09-02] MEDS ORDERED: GUAIFENESIN/COD200MG-20MG/10ML LIQUID PO PRN (07:30)
[2018-09-02] MEDS ORDERED: hydrOXyzine 50MG TABLET PO PRN (07:30)
[2018-09-02] MEDS ORDERED: POTASSIUM CHLORIDE 40 MEQ in SODIUM CHLORIDE 0.9% 500 ML IV ONE (07:30)
[2018-09-02] MEDS ORDERED: CYCLOBENZAPRINE 10 MG TABLET PO PRN (07:30)
[2018-09-02] MEDS ORDERED: FLEXARIL MC SCH (08:30)
[2018-09-02 08:48] LABS: ABSOLUTE RETICS # 0.072 x10^6/uL (0.5-2.5); RETICULOCYTE COUNT % 1.84 % (0.5-1.5)
[2018-09-02] MEDS: PANTOPRAZOLE 40 MG IV IVPush SCH ×2 (08:49→20:38)
[2018-09-02] MEDS: LACTULOSE 10 GM/15 ML UDC PO SCH ×3 (08:49→20:40)
[2018-09-02] MEDS: FOLIC ACID 1 MG TABLET PO SCH (08:50)
[2018-09-02] MEDS: POTASSIUM CHLORIDE 20 MEQ TAB.ER.PRT PO SCH (08:50)
[2018-09-02] MEDS: THIAMINE 100 MG in SODIUM CHLORIDE 0.9% 50 ML IV SCH (08:50)
[2018-09-02] MEDS: NICOTINE 7 MG/24 HR PATCH.TD24 TD SCH (08:50)
[2018-09-02] MEDS: NS + 20MEQ KCL 1,000 ML IV SCH ×2 (08:51→17:08)
[2018-09-02] MEDS: CEFTRIAXONE PMX 1GM/50ML 50 ML IV SCH (08:51)
[2018-09-02 08:52] LABS: RED BLOOD COUNT 3.98 x10^6/uL (3.82-5.3)
[2018-09-02] MEDS ORDERED: FUROSEMIDE 20 MG TABLET PO SCH (09:00)
[2018-09-02] MEDS ORDERED: SPIRONOLACTONE 25 MG TABLET PO SCH (09:00)
[2018-09-02] MEDS ORDERED: FERROUS SULFATE 325 MG TABLET PO SCH (09:00)
[2018-09-02] MEDS ORDERED: MAGNESIUM SULFATE PMX 2GM/50ML 50 ML IV ONE (09:30)
[2018-09-02] MEDS ORDERED: PROPOFOL 10 MG/ML, 20ML ONE (11:12)
[2018-09-02 13:01] VITALS: BP 115/73
[2018-09-02] MEDS ORDERED: LORazepam 2 MG/ML, 1ML IV PRN ×5 (14:00)
[2018-09-02] MEDS ORDERED: ACETAMINOPHEN 325 MG TABLET PO PRN (14:00)
[2018-09-02] MEDS: IRON SUCROSE COMPLEX 100MG/5ML IV SCH (15:29)
[2018-09-02 19:01] VITALS: BP 118/73
[2018-09-02] MEDS: GABAPENTIN 300 MG CAPSULE PO SCH (20:39)
[2018-09-02] MEDS: CYCLOBENZAPRINE 10 MG TABLET PO PRN (20:39)
[2018-09-02] MEDS: TRAZODONE 50MG TABLET PO SCH (20:39)
[2018-09-03 02:21] VITALS: BP 110/67
[2018-09-03 04:49] LABS: ALANINE AMINOTRANSFERASE 42 U/L (12-78); ALBUMIN 2.8 g/dL (3.4-5.0); ANION GAP 12 mmol/L (5-15); CALCIUM 7.7 mg/dL (8.5-10.1); CHLORIDE 104 mmol/L (98-107); MEAN CORPUSCULAR HEMOGLOBIN 23.5 pg (27.0-34.8); MEAN CORPUSCULAR HGB CONC 30.7 g/dL (32.4-35.8); MEAN CORPUSCULAR VOLUME 76.5 fL (80-100); RED BLOOD COUNT 3.62 x10^6/uL (3.82-5.3); RED CELL DISTRIBUTION WIDTH 25.6 % (9.6-15.2)
[2018-09-03 05:03] LABS: ALKALINE PHOSPHATASE 115 U/L (45-117); BILIRUBIN,TOTAL 1.2 mg/dL (0.2-1.0); CREATININE 0.65 mg/dL (0.55-1.02); TOTAL PROTEIN 7.2 g/dL (6.4-8.2)
[2018-09-03 06:07] LABS: BASOPHILS # (AUTO) 0.02 x10^3/uL (0-0.1); BASOPHILS % (AUTO) 0 % (0-1); EOSINOPHILS # (AUTO) 0.21 x10^3/uL (0-0.4); EOSINOPHILS % (AUTO) 4 % (1-7); LYMPHOCYTES # (AUTO) 0.88 x10^3/uL (1-3.4); LYMPHOCYTES % (AUTO) 15 % (22-44); MD SCAN; MEAN PLATELET VOLUME 8.6 fL (7.4-10.4); MONOCYTES # (AUTO) 0.44 x10^3/uL (0.2-0.8); MONOCYTES % (AUTO) 7 % (2-9); NEUTROPHILS # (AUTO) 4.45 x10^3/uL (1.8-6.8); NEUTROPHILS % (AUTO) 74 % (42-75); PLATELET COUNT 81 x10^3/uL (130-400)
[2018-09-03] MEDS: OCTREOTIDE 500 MCG in SODIUM CHLORIDE 0.9% 249 ML IV SCH ×2 (06:19→06:22)
[2018-09-03 07:35] VITALS: BP 119/76
[2018-09-03] MEDS: POTASSIUM CHLORIDE 20 MEQ TAB.ER.PRT PO SCH (09:08)
[2018-09-03] MEDS: MULTIVITAMINS/MINERALS TABLET PO SCH (09:08)
[2018-09-03] MEDS: FOLIC ACID 1 MG TABLET PO SCH (09:08)
[2018-09-03] MEDS: PANTOPRAZOLE 40 MG IV IVPush SCH ×2 (09:09→20:32)
[2018-09-03] MEDS: CEFTRIAXONE PMX 1GM/50ML 50 ML IV SCH (09:09)
[2018-09-03] MEDS: LACTULOSE 10 GM/15 ML UDC PO SCH ×3 (09:09→20:32)
[2018-09-03] MEDS: THIAMINE 100 MG in SODIUM CHLORIDE 0.9% 50 ML IV SCH (09:09)
[2018-09-03] MEDS: NICOTINE 7 MG/24 HR PATCH.TD24 TD SCH (09:10)
[2018-09-03 12:40] VITALS: BP 113/72
[2018-09-03] MEDS: IRON SUCROSE COMPLEX 100MG/5ML IV SCH (18:13)
[2018-09-03] MEDS: CYCLOBENZAPRINE 10 MG TABLET PO PRN (18:22)
[2018-09-03 18:46] VITALS: BP 128/79
[2018-09-03] MEDS: TRAZODONE 50MG TABLET PO SCH (20:32)
[2018-09-03] MEDS: GABAPENTIN 300 MG CAPSULE PO SCH (20:32)
[2018-09-03] MEDS: THIAMINE 100MG TABLET PO SCH (20:32)
[2018-09-04] MEDS: CYCLOBENZAPRINE 10 MG TABLET PO PRN (02:08)
[2018-09-04] MEDS: OCTREOTIDE 500 MCG in SODIUM CHLORIDE 0.9% 249 ML IV SCH (02:26)
[2018-09-04 02:39] VITALS: BP 103/68
[2018-09-04 06:19] LABS: ANION GAP 6 mmol/L (5-15); CALCIUM 8.3 mg/dL (8.5-10.1); CHLORIDE 107 mmol/L (98-107); CREATININE 0.82 mg/dL (0.55-1.02)
[2018-09-04 06:29] LABS: MEAN CORPUSCULAR VOLUME 76.7 fL (80-100); RED BLOOD COUNT 3.54 x10^6/uL (3.82-5.3); RED CELL DISTRIBUTION WIDTH 25.4 % (9.6-15.2)
[2018-09-04 06:57] LABS: MEAN PLATELET VOLUME 8.2 fL (7.4-10.4); PLATELET COUNT 60 x10^3/uL (130-400)
[2018-09-04 06:58] LABS: BASOPHILS # (AUTO) 0.01 x10^3/uL (0-0.1); BASOPHILS % (AUTO) 0 % (0-1); EOSINOPHILS # (AUTO) 0.17 x10^3/uL (0-0.4); EOSINOPHILS % (AUTO) 5 % (1-7); LYMPHOCYTES # (AUTO) 0.78 x10^3/uL (1-3.4); LYMPHOCYTES % (AUTO) 23 % (22-44); MD MORPH REVIEW ONLY; MONOCYTES # (AUTO) 0.31 x10^3/uL (0.2-0.8); MONOCYTES % (AUTO) 9 % (2-9); NEUTROPHILS # (AUTO) 2.19 x10^3/uL (1.8-6.8); NEUTROPHILS % (AUTO) 63 % (42-75)
[2018-09-04 06:59] LABS: ANISOCYTOSIS 2+; HYPOCHROMIA 2+; MICROCYTOSIS 1+; TARGET CELLS 1+
[2018-09-04 07:00] LABS: <PLATELET ESTIMATE> DECREASED; <PLT MORPHOLOGY> NORMAL PLT MORPH; POLYCHROMASIA 1+
[2018-09-04] MEDS: POTASSIUM CHLORIDE 20 MEQ TAB.ER.PRT PO SCH ×3 (07:46→11:44)
[2018-09-04] MEDS: MULTIVITAMINS/MINERALS TABLET PO SCH (07:46)
[2018-09-04] MEDS: FOLIC ACID 1 MG TABLET PO SCH (07:47)
[2018-09-04] MEDS: NICOTINE 7 MG/24 HR PATCH.TD24 TD SCH (07:47)
[2018-09-04] MEDS: LACTULOSE 10 GM/15 ML UDC PO SCH (07:47)
[2018-09-04] MEDS: PANTOPRAZOLE 40 MG IV IVPush SCH (07:47)
[2018-09-04] MEDS: THIAMINE 100MG TABLET PO SCH (07:47)
[2018-09-04] MEDS: CEFTRIAXONE PMX 1GM/50ML 50 ML IV SCH (07:59)
[2018-09-04 08:02] VITALS: BP 107/56
[2018-09-04 13:30] VITALS: BP 100/67
[2018-09-04] MEDS ORDERED: FERR325T18 PO (13:38)
== END 2018-09-04 16:21 | disposition home or self-care (01) | DRG 432 ==
LOC: ED 04:02 → EDIP 05:22 → 3NW 05:54
PROVIDERS: ADMIT Internal Medicine; ATTEND Internal Medicine
PROC: 02HV33Z Insertion of Infusion Device into Superior Vena Cava, Percutaneous Approach (ICD-10-PCS; 2018-09-02)
PROC: B5181ZA Fluoroscopy of Superior Vena Cava using Low Osmolar Contrast, Guidance (ICD-10-PCS; 2018-09-02)
PROC: B548ZZA Ultrasonography of Superior Vena Cava, Guidance (ICD-10-PCS; 2018-09-02)
PROC: 0DJ68ZZ Inspection of Stomach, Via Natural or Artificial Opening Endoscopic (ICD-10-PCS; principal; 2018-09-02 11:00)
DX: K70.30 Alcoholic cirrhosis of liver without ascites (principal); I85.11 Secondary esophageal varices with bleeding; D62 Acute posthemorrhagic anemia; G93.40 Encephalopathy, unspecified; K76.6 Portal hypertension; D50.9 Iron deficiency anemia, unspecified; D69.6 Thrombocytopenia, unspecified; E78.5 Hyperlipidemia, unspecified; E83.42 Hypomagnesemia; E87.6 Hypokalemia; F10.10 Alcohol abuse, uncomplicated; F17.210 Nicotine dependence, cigarettes, uncomplicated; G89.29 Other chronic pain; I10 Essential (primary) hypertension; K31.89 Other diseases of stomach and duodenum; Z82.49 Family history of ischemic heart disease and other diseases of the circulatory system; Z88.0 Allergy status to penicillin; Z88.1 Allergy status to other antibiotic agents
CPT/HCPCS: 36415; 36573; 80048; 80053; 82728; 83540; 83550; 83690; 83735; 84100; 84132; 85014; 85018; 85025; 85045; 85610; 86850; 86900; 93005; 99285; G0378; J0696; J1756; J2354; J2704; J3411; J3480; Q0162; C1751; C9113; J2270; J3475; J7030; J7040; J7050

== ENCOUNTER 2019-05-05 09:02 | Inpatient (IN) | payer MEDICAID ==
[2019-05-05] VITALS (11 sets, daily range): BP systolic 119–127; BP diastolic 69–74
[~2019-05-05] VITALS: Ht 160 cm; Wt 62.8 kg
[~2019-05-05 09:02] MED LIST changes: +CYCL-259 PO; +FURO20TA3 PO; -HYDR50TA13 PO; +HYDR50TA99 PO; +PANT40TA5 PO; +THIA100T67 PO
--- NOTE | 2019-05-05 09:18 | NUR ---
benjamin. report received from ems. pt was transffered from 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 pt c/o n/v/abd pain x 4 days. vomiting blood and dark stool noted per pt. wbc 3.7/rbc 2.54/hgb 5.7/hct 21.[address] [facility]. pt's aox4. gcs 15. resps even and unlabored. all monitors in place. call light within reach. ascitis noted. hx of etoh abuse. edmd at bedside to evaluate at this time.
[2019-05-05] MEDS ORDERED: OCTREOTIDE 1,250 MCG in SODIUM CHLORIDE 0.9% 247.5 ML IV PRN (09:30)
[2019-05-05] MEDS ORDERED: OXYC5TAB3 PO (09:46)
--- NOTE | 2019-05-05 09:51 | NUR ---
critical value hgb 6.2/hct 20.4 per lab.
--- NOTE | 2019-05-05 09:56 | NUR ---
medications ordered from pharmacy at this time.
--- NOTE | 2019-05-05 10:05 | NUR ---
report given to yohana mercado. all questions answered.
[2019-05-05] MEDS ORDERED: LIDOCAINE-MPF 1%, 5ML ONE ×2 (10:06→11:00)
[2019-05-05] MEDS ORDERED: CEFTRIAXONE PMX 1GM/50ML 50 ML IV ONE (11:00)
[2019-05-05] MEDS ORDERED: PROMETHAZINE 25 MG/ML, 1ML IM PRN (11:30)
[2019-05-05] MEDS ORDERED: OXYcodone IR 5MG TABLET PO PRN (11:30)
[2019-05-05] MEDS ORDERED: LACTULOSE 10 GM/15 ML UDC PO SCH (11:30)
[2019-05-05] MEDS ORDERED: D5%-0.9% NACL 1,000 ML IV SCH (11:30)
[2019-05-05] MEDS ORDERED: ONDANSETRON 2MG/ML, 2ML IVPush PRN (11:30)
[2019-05-05] MEDS ORDERED: ONDANSETRON ODT 4 MG PO PRN (11:30)
[2019-05-05] MEDS: morphine SULFATE 10 MG/ML, 1ML IVPush PRN ×4 (11:46→21:53)
[2019-05-05 12:15] LABS: INTERNATIONAL NORMALIZED RATIO 1.19 (0.93-1.1); PROTHROMBIN TIME 12.6 Seconds (9.6-11.5)
[2019-05-05] MEDS ORDERED: LORazepam 1MG TABLET PO PRN ×3 (12:30→13:00)
[2019-05-05] MEDS ORDERED: CYCLOBENZAPRINE 10 MG TABLET PO PRN (12:30)
[2019-05-05 12:31] LABS: ALANINE AMINOTRANSFERASE 26 U/L (12-78); ALBUMIN 2.2 g/dL (3.4-5.0); ANION GAP 13 mmol/L (5-15); CALCIUM 7.1 mg/dL (8.5-10.1); CHLORIDE 114 mmol/L (98-107)
[2019-05-05 12:56] LABS: ALKALINE PHOSPHATASE 121 U/L (45-117); CREATININE 0.51 mg/dL (0.55-1.02); FREE T4 (FREE THYROXINE) 1.26 ng/dL (0.76-1.46); TOTAL PROTEIN 7.7 g/dL (6.4-8.2)
[2019-05-05] MEDS: NICOTINE 21 MG/24 HR PATCH.TD24 TD SCH (12:58)
[2019-05-05] MEDS ORDERED: LORazepam 2 MG/ML, 1ML IV PRN ×5 (13:00)
[2019-05-05] MEDS: PANTOPRAZOLE 80 MG in SODIUM CHLORIDE 0.9% 100 ML IV SCH ×2 (13:39→23:53)
[2019-05-05 13:47] LABS: CELLS COUNTED 84
[2019-05-05] MEDS: FUROSEMIDE 20 MG TABLET PO SCH (13:54)
[2019-05-05] MEDS: THIAMINE 100MG TABLET PO SCH (13:54)
[2019-05-05] MEDS: FOLIC ACID 1 MG TABLET PO SCH (13:54)
[2019-05-05] MEDS: ALBUMIN HUMAN 25% 100 ML IV SCH ×2 (15:03→20:32)
[2019-05-05] MEDS: LACTULOSE 10 GM/15 ML UDC PO SCH ×2 (16:00→20:30)
[2019-05-05] MEDS: PROPRANOLOL 10 MG TABLET PO SCH (20:29)
[2019-05-05] MEDS: LORazepam 0.5MG TABLET PO PRN (20:29)
[2019-05-05] MEDS: SPIRONOLACTONE 25 MG TABLET PO SCH (20:29)
[2019-05-05] MEDS ORDERED: MAGNESIUM SULFATE PMX 4GM/100M 100 ML IV ONE (23:30)
[2019-05-06] VITALS (10 sets, daily range): BP systolic 111–151; BP diastolic 71–77
[2019-05-06] MEDS: morphine SULFATE 10 MG/ML, 1ML IVPush PRN ×2 (01:36→05:08)
[2019-05-06] MEDS: ALBUMIN HUMAN 25% 100 ML IV SCH ×2 (03:06→10:08)
[2019-05-06] MEDS: LORazepam 0.5MG TABLET PO PRN ×2 (03:48→22:54)
[2019-05-06 04:40] LABS: ALANINE AMINOTRANSFERASE 25 U/L (12-78); ANION GAP 8 mmol/L (5-15); CALCIUM 7.1 mg/dL (8.5-10.1); CHLORIDE 107 mmol/L (98-107); CREATININE 0.56 mg/dL (0.55-1.02)
[2019-05-06 04:44] LABS: ALKALINE PHOSPHATASE 90 U/L (45-117); BILIRUBIN,TOTAL 2.1 mg/dL (0.2-1.0); CHOL/HDL RATIO 3.6; CHOLESTEROL, TOTAL 87 mg/dL (140-239); HDL CHOL % 28 % (28-40); HDL CHOLESTEROL (DIRECT) 24 mg/dL (40-60); LDL CHOLESTEROL,CALCULATED 50 mg/dL (54-169); LDL/HDL RATIO 2.1 (0.5-3.0); TOTAL PROTEIN 7.1 g/dL (6.4-8.2); TRIGLYCERIDES 66 mg/dL (50-200); VLDL CHOLESTEROL 13 mg/dL (0-25)
[2019-05-06 05:55] LABS: MEAN CORPUSCULAR HGB CONC 32.7 g/dL (32.4-35.8); MEAN CORPUSCULAR VOLUME 79.6 fL (80-100); MEAN PLATELET VOLUME 8.1 fL (7.4-10.4); RED BLOOD COUNT 3.28 x10^6/uL (3.82-5.3); RED CELL DISTRIBUTION WIDTH 18.8 % (9.6-15.2)
[2019-05-06 05:57] LABS: BASOPHILS # (AUTO) 0.01 x10^3/uL (0-0.1); BASOPHILS % (AUTO) 1 % (0-1); EOSINOPHILS # (AUTO) 0.08 x10^3/uL (0-0.4); EOSINOPHILS % (AUTO) 4 % (1-7); LYMPHOCYTES % (AUTO) 27 % (22-44); MD MORPH REVIEW ONLY; MONOCYTES # (AUTO) 0.12 x10^3/uL (0.2-0.8); MONOCYTES % (AUTO) 7 % (2-9); NEUTROPHILS # (AUTO) 1.12 x10^3/uL (1.8-6.8); NEUTROPHILS % (AUTO) 61 % (42-75); PLATELET COUNT 34 x10^3/uL (130-400)
[2019-05-06 05:58] LABS: ANISOCYTOSIS 2+; HYPOCHROMIA 2+; MICROCYTOSIS 1+; POLYCHROMASIA 1+
[2019-05-06 05:59] LABS: <PLATELET ESTIMATE> DECREASED; <PLT MORPHOLOGY> NORMAL PLT MORPH; SPHEROCYTES 1+; TEAR DROPS 1+
[2019-05-06 06:01] LABS: OVALOCYTES 1+
[2019-05-06] MEDS ORDERED: ACETAMINOPHEN 325 MG TABLET PO PRN (08:30)
[2019-05-06] MEDS ORDERED: FERROUS SULFATE 325 MG TABLET PO SCH (09:00)
[2019-05-06] MEDS ORDERED: OCTREOTIDE 500 MCG in SODIUM CHLORIDE 0.9% 99 ML IV SCH ×2 (09:00→23:00)
[2019-05-06] MEDS: LACTULOSE 10 GM/15 ML UDC PO SCH ×3 (10:09→21:00)
[2019-05-06] MEDS: LACTOBACILLUS CHEW TABLET PO SCH ×3 (10:09→21:11)
[2019-05-06] MEDS: FERROUS SULFATE 325 MG TABLET PO SCH (10:09)
[2019-05-06] MEDS: FUROSEMIDE 20 MG TABLET PO SCH (10:09)
[2019-05-06] MEDS: PROPRANOLOL 10 MG TABLET PO SCH ×2 (10:10→21:12)
[2019-05-06] MEDS: FOLIC ACID 1 MG TABLET PO SCH (10:10)
[2019-05-06] MEDS: CARVEDILOL 3.125 MG TABLET PO SCH ×2 (10:10→17:48)
[2019-05-06] MEDS: THIAMINE 100MG TABLET PO SCH (10:10)
[2019-05-06] MEDS: SPIRONOLACTONE 25 MG TABLET PO SCH ×2 (10:10→21:00)
[2019-05-06] MEDS: NICOTINE 21 MG/24 HR PATCH.TD24 TD SCH (10:11)
[2019-05-06] MEDS ORDERED: POTASSIUM CHLORIDE 20 MEQ TAB.ER.PRT PO ONE (11:00)
[2019-05-06] MEDS: OXYcodone IR 5MG TABLET PO PRN ×3 (11:10→21:12)
[2019-05-06] MEDS: PANTOPRAZOLE 80 MG in SODIUM CHLORIDE 0.9% 100 ML IV SCH ×2 (11:12→20:28)
[2019-05-06 17:08] LABS: CULTURE INDICATED? YES; MICROSCOPIC INDICATED
[2019-05-07 01:59] VITALS: BP 109/66
[2019-05-07] MEDS: CARVEDILOL 3.125 MG TABLET PO SCH ×2 (06:25→18:39)
[2019-05-07] MEDS: PANTOPRAZOLE 80 MG in SODIUM CHLORIDE 0.9% 100 ML IV SCH (06:25)
[2019-05-07 07:43] LABS: ANION GAP 9 mmol/L (5-15); CALCIUM 7.6 mg/dL (8.5-10.1); CHLORIDE 108 mmol/L (98-107); CREATININE 0.51 mg/dL (0.55-1.02)
[2019-05-07 08:31] LABS: MEAN CORPUSCULAR HEMOGLOBIN 25.5 pg (27.0-34.8); MEAN CORPUSCULAR HGB CONC 31.7 g/dL (32.4-35.8); MEAN CORPUSCULAR VOLUME 80.4 fL (80-100); MEAN PLATELET VOLUME 10.1 fL (7.4-10.4); RED BLOOD COUNT 3.77 x10^6/uL (3.82-5.3); RED CELL DISTRIBUTION WIDTH 18.6 % (9.6-15.2)
[2019-05-07 08:34] LABS: PLATELET COUNT 29 x10^3/uL (130-400)
[2019-05-07 08:38] VITALS: BP 112/71
[2019-05-07 08:41] LABS: BASOPHILS # (AUTO) 0.01 x10^3/uL (0-0.1); BASOPHILS % (AUTO) 0 % (0-1); EOSINOPHILS # (AUTO) 0.06 x10^3/uL (0-0.4); EOSINOPHILS % (AUTO) 3 % (1-7); LYMPHOCYTES # (AUTO) 0.52 x10^3/uL (1-3.4); LYMPHOCYTES % (AUTO) 25 % (22-44); MD SCAN; MONOCYTES # (AUTO) 0.18 x10^3/uL (0.2-0.8); MONOCYTES % (AUTO) 9 % (2-9); NEUTROPHILS # (AUTO) 1.28 x10^3/uL (1.8-6.8); NEUTROPHILS % (AUTO) 62 % (42-75)
[2019-05-07] MEDS ORDERED: POTASSIUM CHLORIDE 20 MEQ TAB.ER.PRT PO ONE (10:00)
[2019-05-07 10:10] VITALS: BP 112/69
[2019-05-07] MEDS: LACTOBACILLUS CHEW TABLET PO SCH ×3 (10:18→20:54)
[2019-05-07] MEDS: FUROSEMIDE 20 MG TABLET PO SCH (10:18)
[2019-05-07] MEDS: OXYcodone IR 5MG TABLET PO PRN ×2 (10:19→20:55)
[2019-05-07] MEDS: FOLIC ACID 1 MG TABLET PO SCH (10:19)
[2019-05-07] MEDS: THIAMINE 100MG TABLET PO SCH (10:19)
[2019-05-07] MEDS: PROPRANOLOL 10 MG TABLET PO SCH ×2 (10:19→20:54)
[2019-05-07] MEDS: SPIRONOLACTONE 25 MG TABLET PO SCH ×2 (10:19→20:55)
[2019-05-07] MEDS: NICOTINE 21 MG/24 HR PATCH.TD24 TD SCH (10:20)
[2019-05-07] MEDS: LACTULOSE 10 GM/15 ML UDC PO SCH ×3 (10:20→20:46)
[2019-05-07] MEDS: OMEPRAZOLE 20 MG CAPSULE.DR PO SCH (10:33)
[2019-05-07] MEDS: LORazepam 0.5MG TABLET PO PRN ×2 (15:37→20:55)
[2019-05-07 18:38] VITALS: BP 107/64
[2019-05-07] MEDS: CALCIUM/VITAMIN D3 250-125 TABLET PO SCH (20:55)
[2019-05-08 00:47] VITALS: BP 107/64
[2019-05-08 06:04] LABS: MEAN CORPUSCULAR HEMOGLOBIN 26.4 pg (27.0-34.8); RED BLOOD COUNT 3.45 x10^6/uL (3.82-5.3); RED CELL DISTRIBUTION WIDTH 19.2 % (9.6-15.2)
[2019-05-08] MEDS: OMEPRAZOLE 20 MG CAPSULE.DR PO SCH (06:05)
[2019-05-08] MEDS: CARVEDILOL 3.125 MG TABLET PO SCH (06:05)
[2019-05-08 06:12] LABS: % IRON SATURATION 8 % (20-55); ANION GAP 6 mmol/L (5-15); CALCIUM 8.2 mg/dL (8.5-10.1); CHLORIDE 109 mmol/L (98-107); CREATININE 0.48 mg/dL (0.55-1.02); IRON LEVEL 20 mcg/dL (50-170); TOTAL IRON BINDING CAPACITY 248 mcg/dL (250-450)
[2019-05-08 06:39] LABS: MEAN PLATELET VOLUME 8.6 fL (7.4-10.4)
[2019-05-08 06:40] LABS: BASOPHILS # (AUTO) 0.03 x10^3/uL (0-0.1); BASOPHILS % (AUTO) 1 % (0-1); EOSINOPHILS # (AUTO) 0.08 x10^3/uL (0-0.4); EOSINOPHILS % (AUTO) 3 % (1-7); LYMPHOCYTES # (AUTO) 0.73 x10^3/uL (1-3.4); LYMPHOCYTES % (AUTO) 27 % (22-44); MD SCAN; MONOCYTES # (AUTO) 0.27 x10^3/uL (0.2-0.8); MONOCYTES % (AUTO) 10 % (2-9); NEUTROPHILS # (AUTO) 1.66 x10^3/uL (1.8-6.8); NEUTROPHILS % (AUTO) 60 % (42-75); PLATELET COUNT 37 x10^3/uL (130-400)
[2019-05-08 08:03] VITALS: BP 99/61
[2019-05-08] MEDS: NICOTINE 21 MG/24 HR PATCH.TD24 TD SCH (08:47)
[2019-05-08] MEDS: OXYcodone IR 5MG TABLET PO PRN (08:48)
[2019-05-08] MEDS: PROPRANOLOL 10 MG TABLET PO SCH (08:48)
[2019-05-08] MEDS: LACTOBACILLUS CHEW TABLET PO SCH (08:48)
[2019-05-08] MEDS: FUROSEMIDE 20 MG TABLET PO SCH (08:48)
[2019-05-08] MEDS: THIAMINE 100MG TABLET PO SCH (08:48)
[2019-05-08] MEDS: SPIRONOLACTONE 25 MG TABLET PO SCH (08:49)
[2019-05-08] MEDS: FOLIC ACID 1 MG TABLET PO SCH (08:49)
[2019-05-08] MEDS: CALCIUM/VITAMIN D3 250-125 TABLET PO SCH (08:49)
[2019-05-08] MEDS: LACTULOSE 10 GM/15 ML UDC PO SCH (08:49)
[2019-05-08] MEDS: FERROUS SULFATE 325 MG TABLET PO SCH (09:06)
[2019-05-08] MEDS ORDERED: NICO-487 TD (09:07)
[2019-05-08] MEDS ORDERED: FERR325T18 PO (09:07)
[2019-05-08] MEDS ORDERED: CALC1TAB68 PO (09:07)
[2019-05-08] MEDS ORDERED: CARV3.1212 PO (09:07)
[2019-05-08] MEDS ORDERED: ACID1TAB7 PO (09:07)
[2019-05-08 13:21] VITALS: BP 107/85
== END 2019-05-08 15:05 | disposition home or self-care (01) | DRG 432 ==
LOC: ED 09:33 → 4EST 10:23 → DCLOUNGE 05-08 14:35
PROVIDERS: ADMIT Internal Medicine; ATTEND Internal Medicine
PROC: 0W9G3ZZ Drainage of Peritoneal Cavity, Percutaneous Approach (ICD-10-PCS; principal; 2019-05-05)
PROC: 30233N1 Transfusion of Nonautologous Red Blood Cells into Peripheral Vein, Percutaneous Approach (ICD-10-PCS; 2019-05-05)
DX: K70.31 Alcoholic cirrhosis of liver with ascites (principal); K29.21 Alcoholic gastritis with bleeding; D61.818 Other pancytopenia; E87.2 Acidosis; K76.6 Portal hypertension; D62 Acute posthemorrhagic anemia; E83.51 Hypocalcemia; E87.6 Hypokalemia; F10.20 Alcohol dependence, uncomplicated; F17.210 Nicotine dependence, cigarettes, uncomplicated; G47.00 Insomnia, unspecified; I10 Essential (primary) hypertension; K31.89 Other diseases of stomach and duodenum; Z90.49 Acquired absence of other specified parts of digestive tract; Z88.0 Allergy status to penicillin; Z88.8 Allergy status to other drugs, medicaments and biological substances; Z71.6 Tobacco abuse counseling
CPT/HCPCS: 36415; 82042; 83036; 89051; 99291; J7042; 36430; 49083; 80048; 80053; 80061; 81001; 82140; 82306; 82330; 82607; 83540; 83550; 83615; 83735; 84100; 84157; 84439; 84443; 85014; 85018; 85025; 85610; 86850; 86900; 86923; 87070; 87086; 87205; 88112; 88305; G0378; J0696; J2354; P9047; Q0162; C9113; J2270; J3475; P9016

== ENCOUNTER 2019-06-16 18:51 | Inpatient (IN) | payer MEDICAID ==
[~2019-06-16] VITALS: Ht 160 cm; Wt 64.2 kg
[~2019-06-16 18:51] MED LIST changes: +ACID1TAB7 PO; +CALC1TAB68 PO; +CARV3.1212 PO; +NICO-487 TD; +OXYC5TAB3 PO
--- NOTE | 2019-06-16 19:25 | NUR ---
[facility] for vomiting blood, seen at [facility] this am. pt placed on monitor. call light within reach, bedside report to Dominga mercado
[2019-06-16] MEDS ORDERED: PANTOPRAZOLE 80 MG in SODIUM CHLORIDE 0.9% 50 ML IVPB ONE (19:37)
[2019-06-16] MEDS ORDERED: SODIUM CHLORIDE 0.9% 1,000ML IVBOLUS ONE (20:00)
[2019-06-16] MEDS ORDERED: SODIUM CHLORIDE FLUSH 10ML SYR IVF ONE (20:00)
[2019-06-16 20:12] LABS: BASOPHILS # (AUTO) 0.01 x10^3/uL (0-0.1); BASOPHILS % (AUTO) 0 % (0-1); EOSINOPHILS # (AUTO) 0.16 x10^3/uL (0-0.4); EOSINOPHILS % (AUTO) 2 % (1-7); LYMPHOCYTES # (AUTO) 1.17 x10^3/uL (1-3.4); LYMPHOCYTES % (AUTO) 13 % (22-44); MD MORPH REVIEW ONLY; MEAN CORPUSCULAR HEMOGLOBIN 26.2 pg (27.0-34.8); MEAN CORPUSCULAR HGB CONC 31.9 g/dL (32.4-35.8); MEAN CORPUSCULAR VOLUME 82.3 fL (80-100); MEAN PLATELET VOLUME 9.1 fL (7.4-10.4); MONOCYTES # (AUTO) 0.27 x10^3/uL (0.2-0.8); MONOCYTES % (AUTO) 3 % (2-9); NEUTROPHILS # (AUTO) 7.64 x10^3/uL (1.8-6.8); NEUTROPHILS % (AUTO) 83 % (42-75); PLATELET COUNT 137 x10^3/uL (130-400); RED BLOOD COUNT 4.34 x10^6/uL (3.82-5.3)
[2019-06-16 20:19] LABS: INTERNATIONAL NORMALIZED RATIO 1.41 (0.93-1.1)
[2019-06-16 20:21] LABS: ALANINE AMINOTRANSFERASE 30 U/L (12-78); ALBUMIN 2.8 g/dL (3.4-5.0); ANION GAP 10 mmol/L (5-15); CALCIUM 8.1 mg/dL (8.5-10.1); CHLORIDE 108 mmol/L (98-107); CREATININE 0.68 mg/dL (0.55-1.02)
[2019-06-16 20:23] LABS: ALKALINE PHOSPHATASE 110 U/L (45-117); BILIRUBIN,TOTAL 1.1 mg/dL (0.2-1.0)
[2019-06-16 20:36] LABS: ANISOCYTOSIS 2+; POLYCHROMASIA 1+
[2019-06-16 20:37] LABS: <PLATELET ESTIMATE> ADEQUATE; <PLT MORPHOLOGY> NORMAL PLT MORPH; MICROCYTOSIS 1+; OVALOCYTES 1+
--- NOTE | 2019-06-16 20:55 | NUR ---
PT HAD X1 VOMTING EVENT. EMESIS BLOOD TINGED, APPX 1L. AWARE.
[2019-06-16] MEDS: PANTOPRAZOLE 80 MG in SODIUM CHLORIDE 0.9% 100 ML IV SCH ×2 (21:14→22:59)
[2019-06-16] MEDS ORDERED: SODIUM CHLORIDE 0.9% 1,000 ML IV ONE (21:56)
[2019-06-16] MEDS ORDERED: OCTREOTIDE 500 MCG in SODIUM CHLORIDE 0.9% 99 ML IV PRN (22:00)
[2019-06-16] MEDS ORDERED: SODIUM CHLORIDE FLUSH 10ML SYR IVF PRN (22:00)
[2019-06-16] MEDS ORDERED: NICOTINE 14MG/24 HR PATCH.TD24 TD ONE ×2 (23:00)
[2019-06-16] MEDS: MORPHINE SULFATE 4 MG/ML, 1ML IVPush PRN (23:05)
[2019-06-16 23:09] VITALS: BP 107/63
[2019-06-16] MEDS ORDERED: D5%-0.45% NACL 1,000 ML IV SCH (23:33)
[2019-06-16] MEDS: LORazepam 1MG TABLET PO PRN (23:52)
[2019-06-17] MEDS ORDERED: DOCUSATE 100 MG CAPSULE PO PRN
[2019-06-17] MEDS ORDERED: ONDANSETRON 2MG/ML, 2ML IVPush PRN
[2019-06-17] MEDS ORDERED: LIDODERM 5% PATCH TD PRN
[2019-06-17 00:35] VITALS: BP_SYST 91; BP_SYST 98; BP_DIAS 48; BP_DIAS 58
[2019-06-17] MEDS: PANTOPRAZOLE 80 MG in SODIUM CHLORIDE 0.9% 100 ML IV SCH ×3 (06:03→23:33)
[2019-06-17] MEDS: MORPHINE SULFATE 4 MG/ML, 1ML IVPush PRN ×4 (06:04→22:49)
[2019-06-17] MEDS: LORazepam 1MG TABLET PO PRN ×2 (06:04→20:36)
[2019-06-17] MEDS ORDERED: ACETAMINOPHEN 325 MG TABLET PO PRN (08:00)
[2019-06-17] MEDS ORDERED: LACTOBACILLUS CHEW TABLET ONE (08:27)
[2019-06-17 08:29] VITALS: BP 91/54
[2019-06-17] MEDS: LACTOBACILLUS CHEW TABLET PO SCH ×3 (08:32→20:37)
[2019-06-17] MEDS: SODIUM CHLORIDE 0.9% 1,000 ML IV SCH ×2 (08:32→21:58)
[2019-06-17 09:01] LABS: ANION GAP 7 mmol/L (5-15); CHLORIDE 107 mmol/L (98-107)
[2019-06-17 09:13] LABS: CALCIUM 7.2 mg/dL (8.5-10.1)
[2019-06-17 09:26] LABS: BASOPHILS # (AUTO) 0.02 x10^3/uL (0-0.1); BASOPHILS % (AUTO) 1 % (0-1); EOSINOPHILS # (AUTO) 0.04 x10^3/uL (0-0.4); EOSINOPHILS % (AUTO) 1 % (1-7); LYMPHOCYTES # (AUTO) 0.96 x10^3/uL (1-3.4); LYMPHOCYTES % (AUTO) 26 % (22-44); MD SCAN; MEAN CORPUSCULAR HEMOGLOBIN 26.4 pg (27.0-34.8); MEAN CORPUSCULAR VOLUME 82.6 fL (80-100); MEAN PLATELET VOLUME 8.8 fL (7.4-10.4); MONOCYTES # (AUTO) 0.33 x10^3/uL (0.2-0.8); MONOCYTES % (AUTO) 9 % (2-9); NEUTROPHILS # (AUTO) 2.36 x10^3/uL (1.8-6.8); NEUTROPHILS % (AUTO) 64 % (42-75); PLATELET COUNT 58 x10^3/uL (130-400); RED BLOOD COUNT 3.16 x10^6/uL (3.82-5.3); RED CELL DISTRIBUTION WIDTH 26.4 % (9.6-15.2)
[2019-06-17 13:27] VITALS: BP 95/56
[2019-06-17 18:20] VITALS: BP 99/61
[2019-06-18 00:31] VITALS: BP 107/66
[2019-06-18] MEDS: MORPHINE SULFATE 4 MG/ML, 1ML IVPush PRN ×3 (03:14→20:05)
[2019-06-18 06:27] LABS: ANION GAP 6 mmol/L (5-15); CALCIUM 7.4 mg/dL (8.5-10.1); CHLORIDE 113 mmol/L (98-107)
[2019-06-18 06:30] LABS: % IRON SATURATION 7 % (20-55); CREATININE 0.58 mg/dL (0.55-1.02); IRON LEVEL 23 mcg/dL (50-170); TOTAL IRON BINDING CAPACITY 345 mcg/dL (250-450)
[2019-06-18 06:31] LABS: MEAN CORPUSCULAR HEMOGLOBIN 26.5 pg (27.0-34.8); MEAN CORPUSCULAR HGB CONC 32.1 g/dL (32.4-35.8); MEAN CORPUSCULAR VOLUME 82.7 fL (80-100); RED BLOOD COUNT 2.82 x10^6/uL (3.82-5.3); RED CELL DISTRIBUTION WIDTH 26.3 % (9.6-15.2)
[2019-06-18 06:56] LABS: MD YES; MEAN PLATELET VOLUME 8.6 fL (7.4-10.4)
[2019-06-18 06:59] LABS: BAND#(MANUAL) 0.02 x10^3/uL; BANDS%(MANUAL) 1 % (0-7); EOS#(MANUAL) 0.07 x10^3/uL (0.0-0.4); EOS% (MANUAL) 4 % (1-7)
[2019-06-18 07:00] LABS: ANISOCYTOSIS 2+; HYPOCHROMIA 1+; LYMPH#(MANUAL) 0.63 x10^3/uL (1-3.4); LYMPHS% (MANUAL) 37 % (22-44); MICROCYTOSIS 1+; MONOS% (MANUAL) 6 % (2-9); OVALOCYTES 1+; POLYCHROMASIA 1+; SEG#(MANUAL) 0.88 x10^3/uL (1.8-6.8); SEGS% (MANUAL) 52 % (42-75)
[2019-06-18 07:01] LABS: <PLATELET ESTIMATE> DECREASED; <PLT MORPHOLOGY> NORMAL PLT MORPH
[2019-06-18 07:03] LABS: PLATELET COUNT 43 x10^3/uL (130-400)
[2019-06-18 07:18] VITALS: BP 117/72
[2019-06-18] MEDS: LACTOBACILLUS CHEW TABLET PO SCH ×3 (09:08→20:05)
[2019-06-18] MEDS: OCTREOTIDE 500 MCG in SODIUM CHLORIDE 0.9% 99 ML IV PRN (09:08)
[2019-06-18] MEDS: IRON SUCROSE COMPLEX 100MG/5ML IV SCH (09:08)
[2019-06-18] MEDS: ACETYLCYSTEINE 600 MG CAPSULE PO SCH ×2 (09:08→20:05)
[2019-06-18] MEDS: PANTOPRAZOLE 80 MG in SODIUM CHLORIDE 0.9% 100 ML IV SCH ×2 (09:42→21:44)
[2019-06-18] MEDS ORDERED: PROPOFOL 10 MG/ML, 20ML ONE (11:26)
[2019-06-18] MEDS ORDERED: HYDROmorphone 2 MG/ML, 1ML IVPush PRN (11:30)
[2019-06-18] MEDS ORDERED: EPHEDRINE 50 MG/ML, 1ML IVPush PRN (11:30)
[2019-06-18] MEDS ORDERED: PROMETHAZINE 25 MG/ML, 1ML IV PRN (11:30)
[2019-06-18] MEDS ORDERED: LABETALOL 5MG/ML, 20ML IV PRN (11:30)
[2019-06-18] MEDS ORDERED: MEPERIDINE/PF 25MG/ML,1ML IVPush PRN (11:30)
[2019-06-18] MEDS ORDERED: OXYcodone 5 MG/5 ML ORAL.SOL UDC PO PRN (11:30)
[2019-06-18] MEDS ORDERED: ONDANSETRON 2MG/ML, 2ML IV PRN (11:30)
[2019-06-18] MEDS ORDERED: hydrALAzine 20 MG/ML, 1ML IV PRN (11:30)
[2019-06-18] MEDS ORDERED: FENTANYL PF 100 MCG/2ML ONE (12:10)
[2019-06-18] MEDS: FENTANYL PF 100 MCG/2ML IV PRN ×2 (12:15→12:27)
[2019-06-18 13:06] VITALS: BP 127/74
[2019-06-18] MEDS: SODIUM CHLORIDE 0.9% 1,000 ML IV SCH (13:46)
[2019-06-18] MEDS: NICOTINE 14MG/24 HR PATCH.TD24 TD SCH (13:47)
[2019-06-18 19:53] VITALS: BP 121/66
[2019-06-18] MEDS: LORazepam 1MG TABLET PO PRN (20:09)
[2019-06-19 02:47] VITALS: BP 119/70
[2019-06-19] MEDS: SODIUM CHLORIDE 0.9% 1,000 ML IV SCH ×2 (04:06→17:52)
[2019-06-19 05:53] LABS: MEAN CORPUSCULAR HEMOGLOBIN 26.8 pg (27.0-34.8); MEAN CORPUSCULAR HGB CONC 32.4 g/dL (32.4-35.8); MEAN CORPUSCULAR VOLUME 82.9 fL (80-100); MEAN PLATELET VOLUME 8.8 fL (7.4-10.4); RED BLOOD COUNT 3.01 x10^6/uL (3.82-5.3)
[2019-06-19 06:28] LABS: PLATELET COUNT 44 x10^3/uL (130-400)
[2019-06-19 06:42] LABS: BASOPHILS # (AUTO) 0.01 x10^3/uL (0-0.1); BASOPHILS % (AUTO) 1 % (0-1); EOSINOPHILS # (AUTO) 0.07 x10^3/uL (0-0.4); EOSINOPHILS % (AUTO) 3 % (1-7); LYMPHOCYTES # (AUTO) 0.51 x10^3/uL (1-3.4); LYMPHOCYTES % (AUTO) 24 % (22-44); MD SCAN; MONOCYTES # (AUTO) 0.22 x10^3/uL (0.2-0.8); MONOCYTES % (AUTO) 10 % (2-9); NEUTROPHILS # (AUTO) 1.35 x10^3/uL (1.8-6.8); NEUTROPHILS % (AUTO) 62 % (42-75)
[2019-06-19 07:21] VITALS: BP 113/70
[2019-06-19] MEDS ORDERED: MAGNESIUM SULFATE PMX 4GM/100M 100 ML IV ONE (07:30)
[2019-06-19] MEDS: MORPHINE SULFATE 4 MG/ML, 1ML IVPush PRN ×2 (07:49→18:03)
[2019-06-19] MEDS: LACTOBACILLUS CHEW TABLET PO SCH ×3 (07:49→20:07)
[2019-06-19] MEDS: ACETYLCYSTEINE 600 MG CAPSULE PO SCH ×2 (07:49→20:07)
[2019-06-19] MEDS: LORazepam 1MG TABLET PO PRN (09:07)
[2019-06-19] MEDS: PANTOPRAZOLE 80 MG in SODIUM CHLORIDE 0.9% 100 ML IV SCH ×2 (09:07→17:52)
[2019-06-19] MEDS: IRON SUCROSE COMPLEX 100MG/5ML IV SCH (09:07)
[2019-06-19] MEDS: OCTREOTIDE 500 MCG in SODIUM CHLORIDE 0.9% 99 ML IV PRN (12:52)
[2019-06-19] MEDS: NICOTINE 14MG/24 HR PATCH.TD24 TD SCH (12:52)
[2019-06-19 13:51] VITALS: BP 113/71
[2019-06-19 19:42] VITALS: BP 98/66
[2019-06-19] MEDS ORDERED: LIDODERM REMOVE PATCH NOTE XX SCH (20:00)
[2019-06-20 01:08] VITALS: BP 92/56
[2019-06-20] MEDS: PANTOPRAZOLE 80 MG in SODIUM CHLORIDE 0.9% 100 ML IV SCH (03:26)
[2019-06-20] MEDS: MORPHINE SULFATE 4 MG/ML, 1ML IVPush PRN (03:27)
[2019-06-20 04:38] LABS: MEAN CORPUSCULAR HEMOGLOBIN 26.7 pg (27.0-34.8); MEAN CORPUSCULAR VOLUME 83.5 fL (80-100); RED BLOOD COUNT 2.78 x10^6/uL (3.82-5.3); RED CELL DISTRIBUTION WIDTH 25.7 % (9.6-15.2)
[2019-06-20 05:11] LABS: MEAN PLATELET VOLUME 8.9 fL (7.4-10.4)
[2019-06-20 05:23] LABS: ANISOCYTOSIS 2+; BASOPHILS # (AUTO) 0.01 x10^3/uL (0-0.1); BASOPHILS % (AUTO) 0 % (0-1); EOSINOPHILS # (AUTO) 0.06 x10^3/uL (0-0.4); EOSINOPHILS % (AUTO) 3 % (1-7); HYPOCHROMIA 1+; LYMPHOCYTES # (AUTO) 0.56 x10^3/uL (1-3.4); LYMPHOCYTES % (AUTO) 27 % (22-44); MD MORPH REVIEW ONLY; MICROCYTOSIS 1+; MONOCYTES # (AUTO) 0.21 x10^3/uL (0.2-0.8); MONOCYTES % (AUTO) 10 % (2-9); NEUTROPHILS # (AUTO) 1.26 x10^3/uL (1.8-6.8); NEUTROPHILS % (AUTO) 60 % (42-75); POLYCHROMASIA 1+
[2019-06-20 05:24] LABS: <PLATELET ESTIMATE> DECREASED; <PLT MORPHOLOGY> NORMAL PLT MORPH; OVALOCYTES 1+; TEAR DROPS 1+
[2019-06-20 05:31] LABS: PLATELET COUNT 45 x10^3/uL (130-400)
[2019-06-20] MEDS: SODIUM CHLORIDE 0.9% 1,000 ML IV SCH (05:50)
[2019-06-20 07:11] VITALS: BP 96/58
[2019-06-20] MEDS ORDERED: PANTOPRAZOLE 40 MG IV IVPush SCH (07:30)
[2019-06-20] MEDS: LACTOBACILLUS CHEW TABLET PO SCH (07:44)
[2019-06-20] MEDS ORDERED: IRON SUCROSE COMPLEX 100MG/5ML IV SCH (11:30)
[2019-06-20] MEDS: ACETYLCYSTEINE 600 MG CAPSULE PO SCH (11:51)
[2019-06-20] MEDS: NICOTINE 14MG/24 HR PATCH.TD24 TD SCH (12:19)
[2019-06-20 12:21] VITALS: BP 108/63
[2019-06-20] MEDS ORDERED: FERR325T18 PO (13:49)
[2019-06-20] MEDS ORDERED: PANT40TA3 PO (13:49)
== END 2019-06-20 16:38 | disposition home or self-care (01) | DRG 432 ==
LOC: ED 22:07 → EDIP 23:03 → 4WST 23:04
PROVIDERS: ADMIT Hospitalist; ATTEND Hospitalist
PROC: 06L38CZ Occlusion of Esophageal Vein with Extraluminal Device, Via Natural or Artificial Opening Endoscopic (ICD-10-PCS; principal; 2019-06-18 10:00)
DX: K70.30 Alcoholic cirrhosis of liver without ascites (principal); I85.11 Secondary esophageal varices with bleeding; D62 Acute posthemorrhagic anemia; K76.6 Portal hypertension; D69.6 Thrombocytopenia, unspecified; E83.42 Hypomagnesemia; F17.210 Nicotine dependence, cigarettes, uncomplicated; G47.00 Insomnia, unspecified; I10 Essential (primary) hypertension; K31.89 Other diseases of stomach and duodenum; K44.9 Diaphragmatic hernia without obstruction or gangrene; R79.1 Abnormal coagulation profile; Z88.0 Allergy status to penicillin; Z88.8 Allergy status to other drugs, medicaments and biological substances
CPT/HCPCS: 36415; 74021; 80048; 80053; 82728; 83540; 83550; 83735; 84703; 85025; 85610; 85730; 86850; 86900; 96365; 96366; 96368; G0378; J1756; J2354; J2704; J3010; C9113; J2270; J3475; J7030

== ENCOUNTER 2019-07-03 23:04 | Inpatient (IN) | payer MEDICAID ==
[~2019-07-03] VITALS: Ht 160 cm; Wt 55.6 kg
[2019-07-03] MEDS ORDERED: PANTOPRAZOLE 80 MG in SODIUM CHLORIDE 0.9% 50 ML IVPB ONE (23:28)
[2019-07-03] MEDS ORDERED: ONDANSETRON 2MG/ML, 2ML IVPush ONE (23:30)
[2019-07-03] MEDS ORDERED: OCTREOTIDE 100MCG/ML, 1ML (0.1MG/ML) IV ONE (23:30)
[2019-07-03] MEDS ORDERED: MORPHINE SULFATE 4 MG/ML, 1ML IVPush PRN (23:30)
[2019-07-03] MEDS ORDERED: MORPHINE SULFATE 4 MG/ML, 1ML ONE (23:36)
[2019-07-03] MEDS ORDERED: ONDANSETRON 2MG/ML, 2ML ONE (23:36)
[2019-07-03] MEDS ORDERED: OCTREOTIDE 100MCG/ML, 1ML (0.1MG/ML) ONE (23:37)
[2019-07-03] MEDS ORDERED: PANTOPRAZOLE 80 MG in SODIUM CHLORIDE 0.9% 100 ML IV SCH (23:45)
[2019-07-03 23:53] LABS: MEAN CORPUSCULAR HEMOGLOBIN 26.6 pg (27.0-34.8); MEAN CORPUSCULAR HGB CONC 31.5 g/dL (32.4-35.8); MEAN CORPUSCULAR VOLUME 84.4 fL (80-100); RED BLOOD COUNT 3.55 x10^6/uL (3.82-5.3); RED CELL DISTRIBUTION WIDTH 24.1 % (9.6-15.2)
[2019-07-03 23:55] LABS: ALANINE AMINOTRANSFERASE 21 U/L (12-78); ALBUMIN 2.8 g/dL (3.4-5.0); ANION GAP 6 mmol/L (5-15); CALCIUM 8.2 mg/dL (8.5-10.1); CHLORIDE 115 mmol/L (98-107); CREATININE 0.54 mg/dL (0.55-1.02)
[2019-07-03 23:56] LABS: INTERNATIONAL NORMALIZED RATIO 1.28 (0.93-1.1); PROTHROMBIN TIME 13.6 Seconds (9.6-11.5)
[2019-07-03 23:58] LABS: ALKALINE PHOSPHATASE 132 U/L (45-117); BILIRUBIN,TOTAL 0.5 mg/dL (0.2-1.0); TOTAL PROTEIN 7.8 g/dL (6.4-8.2)
[2019-07-04 00:24] LABS: MEAN PLATELET VOLUME 8.5 fL (7.4-10.4); PLATELET COUNT 62 x10^3/uL (130-400)
[2019-07-04 00:27] LABS: BASOPHILS # (AUTO) 0.04 x10^3/uL (0-0.1); BASOPHILS % (AUTO) 1 % (0-1); EOSINOPHILS # (AUTO) 0.03 x10^3/uL (0-0.4); EOSINOPHILS % (AUTO) 1 % (1-7); LYMPHOCYTES # (AUTO) 0.77 x10^3/uL (1-3.4); LYMPHOCYTES % (AUTO) 23 % (22-44); MD MORPH REVIEW ONLY; MONOCYTES # (AUTO) 0.25 x10^3/uL (0.2-0.8); MONOCYTES % (AUTO) 7 % (2-9); NEUTROPHILS # (AUTO) 2.23 x10^3/uL (1.8-6.8); NEUTROPHILS % (AUTO) 67 % (42-75)
[2019-07-04 00:28] LABS: ANISOCYTOSIS 2+; HYPOCHROMIA 1+; MICROCYTOSIS 1+; OVALOCYTES 1+; POLYCHROMASIA 1+; TARGET CELLS 1+
[2019-07-04 00:29] LABS: <PLATELET ESTIMATE> DECREASED; <PLT MORPHOLOGY> NORMAL PLT MORPH; TEAR DROPS 1+
[2019-07-04] MEDS ORDERED: ONDANSETRON 2MG/ML, 2ML IVPush PRN (00:30)
[2019-07-04] MEDS ORDERED: MORPHINE SULFATE 4 MG/ML, 1ML IVPush PRN (00:30)
[2019-07-04] MEDS ORDERED: TRAZ50TA66 PO (00:38)
[2019-07-04] MEDS ORDERED: propranolol PO (00:38)
[2019-07-04] MEDS ORDERED: OXYC5CAP2 PO (00:38)
[2019-07-04] MEDS ORDERED: ONDA8TAB9 PO (00:38)
[2019-07-04] MEDS ORDERED: SERT50TA28 PO (00:38)
[2019-07-04] MEDS ORDERED: CYCL-259 PO (00:38)
[2019-07-04] MEDS ORDERED: ACAM333T7 PO (00:38)
[2019-07-04] MEDS ORDERED: TRAM50TA2 PO (00:38)
--- NOTE | 2019-07-04 00:57 | NUR ---
task rn: report to jess blackwell
[2019-07-04] MEDS ORDERED: hydrALAzine 20 MG/ML, 1ML IVPush PRN (01:30)
[2019-07-04] MEDS ORDERED: POTASSIUM CHLORIDE 40 MEQ in SODIUM CHLORIDE 0.9% 500 ML IV ONE (01:30)
[2019-07-04] MEDS ORDERED: PROMETHAZINE 25 MG/ML, 1ML IM PRN (01:30)
[2019-07-04] MEDS ORDERED: ONDANSETRON 2MG/ML, 2ML IV PRN (01:30)
[2019-07-04] MEDS ORDERED: THIAMINE 200 MG in SODIUM CHLORIDE 0.9% 50 ML IV ONE (01:30)
[2019-07-04 01:34] VITALS: BP 100/62
[2019-07-04] MEDS ORDERED: OCTREOTIDE 500 MCG in SODIUM CHLORIDE 0.9% 99 ML IV SCH (02:30)
[2019-07-04] MEDS ORDERED: FUROSEMIDE 20 MG/2 ML IV ONE (02:30)
[2019-07-04] MEDS: morphine SULFATE 10 MG/ML, 1ML IVPush PRN ×7 (02:44→21:44)
[2019-07-04] MEDS ORDERED: NICOTINE 14MG/24 HR PATCH.TD24 ONE (02:58)
[2019-07-04] MEDS: OCTREOTIDE 500 MCG in SODIUM CHLORIDE 0.9% 99 ML IV SCH ×2 (03:04→15:27)
[2019-07-04] MEDS: NICOTINE 14MG/24 HR PATCH.TD24 TD SCH (03:05)
[2019-07-04] MEDS: CEFTRIAXONE PMX 1GM/50ML 50 ML IV SCH (04:52)
[2019-07-04 05:05] LABS: ALANINE AMINOTRANSFERASE 22 U/L (12-78); ALBUMIN 2.8 g/dL (3.4-5.0); ANION GAP 8 mmol/L (5-15); CALCIUM 7.7 mg/dL (8.5-10.1); CHLORIDE 111 mmol/L (98-107); CREATININE 0.51 mg/dL (0.55-1.02)
[2019-07-04 05:06] LABS: MEAN PLATELET VOLUME 9.1 fL (7.4-10.4); PLATELET COUNT 60 x10^3/uL (130-400)
[2019-07-04 05:08] LABS: ALKALINE PHOSPHATASE 117 U/L (45-117); BILIRUBIN,TOTAL 0.6 mg/dL (0.2-1.0); TOTAL PROTEIN 7.5 g/dL (6.4-8.2)
[2019-07-04 06:53] LABS: MEAN CORPUSCULAR HEMOGLOBIN 27.1 pg (27.0-34.8); MEAN CORPUSCULAR HGB CONC 31.9 g/dL (32.4-35.8); MEAN CORPUSCULAR VOLUME 84.9 fL (80-100); RED CELL DISTRIBUTION WIDTH 23.7 % (9.6-15.2)
[2019-07-04 06:54] LABS: BASOPHILS # (AUTO) 0.02 x10^3/uL (0-0.1); BASOPHILS % (AUTO) 1 % (0-1); EOSINOPHILS # (AUTO) 0.05 x10^3/uL (0-0.4); EOSINOPHILS % (AUTO) 1 % (1-7); LYMPHOCYTES # (AUTO) 1.04 x10^3/uL (1-3.4); LYMPHOCYTES % (AUTO) 31 % (22-44); MD SCAN; MONOCYTES # (AUTO) 0.28 x10^3/uL (0.2-0.8); MONOCYTES % (AUTO) 8 % (2-9); NEUTROPHILS # (AUTO) 1.95 x10^3/uL (1.8-6.8); NEUTROPHILS % (AUTO) 59 % (42-75)
[2019-07-04 07:23] VITALS: BP 107/63
[2019-07-04] MEDS ORDERED: LIDOCAINE 1%, 10ML ONE (11:13)
[2019-07-04] MEDS: PANTOPRAZOLE 80 MG in SODIUM CHLORIDE 0.9% 100 ML IV SCH ×2 (11:28→21:43)
[2019-07-04 13:14] VITALS: BP 115/69
[2019-07-04 19:59] VITALS: BP 128/74
[2019-07-05] MEDS: OCTREOTIDE 500 MCG in SODIUM CHLORIDE 0.9% 99 ML IV SCH (00:50)
[2019-07-05] MEDS: morphine SULFATE 10 MG/ML, 1ML IVPush PRN ×2 (00:50→04:02)
[2019-07-05 00:56] VITALS: BP 119/67
[2019-07-05] MEDS: NICOTINE 14MG/24 HR PATCH.TD24 TD SCH (04:01)
[2019-07-05] MEDS: CEFTRIAXONE PMX 1GM/50ML 50 ML IV SCH (04:01)
[2019-07-05] MEDS: PANTOPRAZOLE 80 MG in SODIUM CHLORIDE 0.9% 100 ML IV SCH (06:26)
[2019-07-05 06:31] VITALS: BP 123/77
[2019-07-05] MEDS ORDERED: MORPHINE SULFATE 4 MG/ML, 1ML IVPush PRN (09:00)
[2019-07-05] MEDS ORDERED: PANTOPRAZOLE 40 MG IV IVPush SCH (09:00)
[2019-07-05] MEDS: OXYcodone/APAP 7.5/325MG TABLET PO PRN ×3 (09:04→23:56)
[2019-07-05 12:08] VITALS: BP 136/79
[2019-07-05] MEDS ORDERED: DIPHENHYDRAMINE 50 MG/ML, 1ML IVPush PRN (16:00)
[2019-07-05] MEDS: PANTOPRAZOLE 40MG TABLET PO SCH (16:21)
[2019-07-05] MEDS: hydrOXyzine 50MG TABLET PO PRN ×2 (16:21→23:55)
[2019-07-05 19:35] VITALS: BP 119/74
[2019-07-05] MEDS: SERTRALINE 50MG TABLET PO SCH (20:17)
[2019-07-05] MEDS: GABAPENTIN 400 MG CAPSULE PO SCH (20:17)
[2019-07-06 01:16] VITALS: BP 112/68
[2019-07-06] MEDS: CEFTRIAXONE PMX 1GM/50ML 50 ML IV SCH (04:04)
[2019-07-06] MEDS: NICOTINE 14MG/24 HR PATCH.TD24 TD SCH (04:04)
[2019-07-06] MEDS: PANTOPRAZOLE 40MG TABLET PO SCH ×2 (05:12→15:48)
[2019-07-06 06:04] LABS: ANION GAP 5 mmol/L (5-15); CALCIUM 8.4 mg/dL (8.5-10.1); CHLORIDE 108 mmol/L (98-107); CREATININE 0.51 mg/dL (0.55-1.02)
[2019-07-06 06:49] LABS: MEAN CORPUSCULAR HEMOGLOBIN 26.1 pg (27.0-34.8); MEAN CORPUSCULAR HGB CONC 31.1 g/dL (32.4-35.8); MEAN PLATELET VOLUME 8.6 fL (7.4-10.4); RED BLOOD COUNT 3.28 x10^6/uL (3.82-5.3); RED CELL DISTRIBUTION WIDTH 23.6 % (9.6-15.2)
[2019-07-06 06:50] VITALS: BP 113/67
[2019-07-06 06:53] LABS: PLATELET COUNT 41 x10^3/uL (130-400)
[2019-07-06 06:55] LABS: MD YES
[2019-07-06 06:58] LABS: BAND#(MANUAL) 0.02 x10^3/uL; BANDS%(MANUAL) 1 % (0-7); MONOS#(MANUAL) 0.11 x10^3/uL (0.3-2.7); MONOS% (MANUAL) 7 % (2-9)
[2019-07-06 06:59] LABS: ANISOCYTOSIS 2+; EOS#(MANUAL) 0.06 x10^3/uL (0.0-0.4); EOS% (MANUAL) 4 % (1-7); HYPOCHROMIA 1+; LYMPH#(MANUAL) 0.41 x10^3/uL (1-3.4); LYMPHS% (MANUAL) 27 % (22-44); MICROCYTOSIS 1+; OVALOCYTES 1+; POLYCHROMASIA 1+; SEG#(MANUAL) 0.92 x10^3/uL (1.8-6.8); SEGS% (MANUAL) 61 % (42-75)
[2019-07-06 07:00] LABS: <PLATELET ESTIMATE> DECREASED; <PLT MORPHOLOGY> NORMAL PLT MORPH
[2019-07-06] MEDS: GABAPENTIN 400 MG CAPSULE PO SCH ×3 (08:03→20:59)
[2019-07-06] MEDS: SERTRALINE 50MG TABLET PO SCH ×2 (08:03→20:59)
[2019-07-06] MEDS: FERROUS SULFATE 325 MG TABLET PO SCH (08:03)
[2019-07-06 12:01] VITALS: BP 120/71
[2019-07-06] MEDS: OXYcodone/APAP 7.5/325MG TABLET PO PRN ×3 (12:31→21:00)
[2019-07-06] MEDS: hydrOXyzine 50MG TABLET PO PRN ×2 (12:31→20:59)
[2019-07-06] MEDS ORDERED: POTASSIUM CHLORIDE 20 MEQ in SODIUM CHLORIDE 0.9% 250 ML IV ONE (15:00)
[2019-07-06 19:43] VITALS: BP 106/88
[2019-07-07 02:20] VITALS: BP 106/62
[2019-07-07] MEDS: NICOTINE 14MG/24 HR PATCH.TD24 TD SCH (04:01)
[2019-07-07] MEDS: CEFTRIAXONE PMX 1GM/50ML 50 ML IV SCH (04:01)
[2019-07-07] MEDS: PANTOPRAZOLE 40MG TABLET PO SCH ×2 (05:20→16:04)
[2019-07-07 05:27] LABS: ALBUMIN 2.4 g/dL (3.4-5.0); ANION GAP 5 mmol/L (5-15); CALCIUM 8.1 mg/dL (8.5-10.1); CHLORIDE 109 mmol/L (98-107)
[2019-07-07 05:30] LABS: ALANINE AMINOTRANSFERASE 18 U/L (12-78); ALKALINE PHOSPHATASE 91 U/L (45-117); BILIRUBIN,TOTAL 0.8 mg/dL (0.2-1.0); CREATININE 0.48 mg/dL (0.55-1.02); TOTAL PROTEIN 6.8 g/dL (6.4-8.2)
[2019-07-07 05:42] LABS: MEAN CORPUSCULAR HEMOGLOBIN 26.1 pg (27.0-34.8); MEAN CORPUSCULAR HGB CONC 31.5 g/dL (32.4-35.8); MEAN CORPUSCULAR VOLUME 82.7 fL (80-100); MEAN PLATELET VOLUME 9.2 fL (7.4-10.4); RED BLOOD COUNT 3.22 x10^6/uL (3.82-5.3); RED CELL DISTRIBUTION WIDTH 23.5 % (9.6-15.2)
[2019-07-07 05:47] LABS: PLATELET COUNT 39 x10^3/uL (130-400)
[2019-07-07 06:03] LABS: MD YES
[2019-07-07 06:07] LABS: ANISOCYTOSIS 2+; BASOS#(MANUAL) 0.02 x10^3/uL (0-0.1); BASOS% (MANUAL) 1 % (0-1); EOS#(MANUAL) 0.08 x10^3/uL (0.0-0.4); EOS% (MANUAL) 5 % (1-7); HYPOCHROMIA 1+; LYMPH#(MANUAL) 0.54 x10^3/uL (1-3.4); LYMPHS% (MANUAL) 34 % (22-44); MICROCYTOSIS 1+; MONOS#(MANUAL) 0.06 x10^3/uL (0.3-2.7); MONOS% (MANUAL) 4 % (2-9); POLYCHROMASIA 1+; SEGS% (MANUAL) 56 % (42-75)
[2019-07-07 06:08] LABS: <PLATELET ESTIMATE> DECREASED; <PLT MORPHOLOGY> NORMAL PLT MORPH; OVALOCYTES 1+
[2019-07-07 06:20] VITALS: BP 113/65
[2019-07-07] MEDS: GABAPENTIN 400 MG CAPSULE PO SCH ×3 (09:13→21:38)
[2019-07-07] MEDS: FERROUS SULFATE 325 MG TABLET PO SCH (09:14)
[2019-07-07] MEDS: OXYcodone/APAP 7.5/325MG TABLET PO PRN ×3 (09:15→22:12)
[2019-07-07] MEDS: hydrOXyzine 50MG TABLET PO PRN ×3 (09:15→22:12)
[2019-07-07] MEDS: SERTRALINE 50MG TABLET PO SCH ×2 (09:15→21:38)
[2019-07-07 12:13] VITALS: BP 118/66
[2019-07-07 18:48] VITALS: BP 105/66
[2019-07-08 01:54] VITALS: BP 101/58
[2019-07-08] MEDS: NICOTINE 14MG/24 HR PATCH.TD24 TD SCH (04:13)
[2019-07-08] MEDS: CEFTRIAXONE PMX 1GM/50ML 50 ML IV SCH (04:13)
[2019-07-08] MEDS: OXYcodone/APAP 7.5/325MG TABLET PO PRN ×4 (04:48→23:22)
[2019-07-08] MEDS: hydrOXyzine 50MG TABLET PO PRN ×4 (04:49→23:22)
[2019-07-08] MEDS: PANTOPRAZOLE 40MG TABLET PO SCH ×2 (04:49→17:13)
[2019-07-08 06:08] LABS: ALBUMIN 2.5 g/dL (3.4-5.0); ANION GAP 6 mmol/L (5-15); CALCIUM 8.1 mg/dL (8.5-10.1); CHLORIDE 111 mmol/L (98-107)
[2019-07-08 06:12] LABS: ALANINE AMINOTRANSFERASE 18 U/L (12-78); ALKALINE PHOSPHATASE 96 U/L (45-117); BILIRUBIN,TOTAL 0.7 mg/dL (0.2-1.0)
[2019-07-08 06:16] LABS: MEAN CORPUSCULAR HEMOGLOBIN 26.1 pg (27.0-34.8); MEAN CORPUSCULAR HGB CONC 31.6 g/dL (32.4-35.8); MEAN CORPUSCULAR VOLUME 82.4 fL (80-100); RED BLOOD COUNT 3.25 x10^6/uL (3.82-5.3); RED CELL DISTRIBUTION WIDTH 23.4 % (9.6-15.2)
[2019-07-08 06:49] LABS: MD YES
[2019-07-08 07:08] LABS: MEAN PLATELET VOLUME 8.3 fL (7.4-10.4)
[2019-07-08 07:11] LABS: EOS#(MANUAL) 0.11 x10^3/uL (0.0-0.4); EOS% (MANUAL) 6 % (1-7); LYMPH#(MANUAL) 0.61 x10^3/uL (1-3.4); LYMPHS% (MANUAL) 34 % (22-44); MONOS#(MANUAL) 0.14 x10^3/uL (0.3-2.7); MONOS% (MANUAL) 8 % (2-9); PLATELET COUNT 36 x10^3/uL (130-400); SEG#(MANUAL) 0.94 x10^3/uL (1.8-6.8); SEGS% (MANUAL) 52 % (42-75)
[2019-07-08 07:12] LABS: <PLATELET ESTIMATE> DECREASED; <PLT MORPHOLOGY> NORMAL PLT MORPH; ANISOCYTOSIS 2+; HYPOCHROMIA 1+; MICROCYTOSIS 1+; OVALOCYTES 1+; POLYCHROMASIA 1+
[2019-07-08] MEDS: GABAPENTIN 400 MG CAPSULE PO SCH ×3 (08:14→19:55)
[2019-07-08] MEDS: SERTRALINE 50MG TABLET PO SCH ×2 (08:14→19:55)
[2019-07-08] MEDS: FERROUS SULFATE 325 MG TABLET PO SCH (08:14)
[2019-07-08 09:49] VITALS: BP 103/63
[2019-07-08] MEDS ORDERED: POTASSIUM CHLORIDE 20 MEQ TAB.ER.PRT PO ONE ×2 (11:00)
[2019-07-08 15:16] LABS: ALANINE AMINOTRANSFERASE 18 U/L (12-78); ALBUMIN 2.4 g/dL (3.4-5.0); ANION GAP 5 mmol/L (5-15); CHLORIDE 111 mmol/L (98-107); CREATININE 0.55 mg/dL (0.55-1.02)
[2019-07-08 15:18] LABS: ALKALINE PHOSPHATASE 107 U/L (45-117); BILIRUBIN,TOTAL 0.6 mg/dL (0.2-1.0); TOTAL PROTEIN 6.8 g/dL (6.4-8.2)
[2019-07-08 15:44] VITALS: BP 112/61
[2019-07-08 19:51] VITALS: BP 108/51
[2019-07-09 01:16] VITALS: BP 103/61
[2019-07-09] MEDS: NICOTINE 14MG/24 HR PATCH.TD24 TD SCH (04:13)
[2019-07-09] MEDS: CEFTRIAXONE PMX 1GM/50ML 50 ML IV SCH (04:13)
[2019-07-09] MEDS: PANTOPRAZOLE 40MG TABLET PO SCH (05:17)
[2019-07-09] MEDS: hydrOXyzine 50MG TABLET PO PRN ×2 (05:17→11:37)
[2019-07-09] MEDS: OXYcodone/APAP 7.5/325MG TABLET PO PRN ×2 (05:17→11:37)
[2019-07-09 06:03] LABS: ANION GAP 4 mmol/L (5-15); CHLORIDE 111 mmol/L (98-107)
[2019-07-09 06:04] LABS: CREATININE 0.53 mg/dL (0.55-1.02)
[2019-07-09 06:05] LABS: MEAN CORPUSCULAR HGB CONC 31.2 g/dL (32.4-35.8); MEAN CORPUSCULAR VOLUME 83.1 fL (80-100); MEAN PLATELET VOLUME 8.6 fL (7.4-10.4); RED BLOOD COUNT 3.12 x10^6/uL (3.82-5.3); RED CELL DISTRIBUTION WIDTH 24.1 % (9.6-15.2)
[2019-07-09 06:10] LABS: PLATELET COUNT 37 x10^3/uL (130-400)
[2019-07-09 06:23] LABS: MD YES
[2019-07-09 06:31] LABS: ANISOCYTOSIS 1+; BAND#(MANUAL) 0.02 x10^3/uL; BANDS%(MANUAL) 1 % (0-7); BASOS#(MANUAL) 0.02 x10^3/uL (0-0.1); BASOS% (MANUAL) 1 % (0-1); EOS#(MANUAL) 0.03 x10^3/uL (0.0-0.4); EOS% (MANUAL) 2 % (1-7); HYPOCHROMIA 1+; LYMPH#(MANUAL) 0.65 x10^3/uL (1-3.4); LYMPHS% (MANUAL) 38 % (22-44); MONOS#(MANUAL) 0.05 x10^3/uL (0.3-2.7); MONOS% (MANUAL) 3 % (2-9); SEG#(MANUAL) 0.94 x10^3/uL (1.8-6.8); SEGS% (MANUAL) 55 % (42-75)
[2019-07-09 06:32] LABS: <PLATELET ESTIMATE> DECREASED; <PLT MORPHOLOGY> NORMAL PLT MORPH; MICROCYTOSIS 1+; OVALOCYTES 1+; POLYCHROMASIA 1+
[2019-07-09 07:12] VITALS: BP 112/66
[2019-07-09] MEDS: GABAPENTIN 400 MG CAPSULE PO SCH (08:41)
[2019-07-09] MEDS: SERTRALINE 50MG TABLET PO SCH (08:41)
[2019-07-09] MEDS: FERROUS SULFATE 325 MG TABLET PO SCH (08:41)
== END 2019-07-09 12:11 | disposition home or self-care (01) | DRG 377 ==
LOC: ED 23:34 → EDIP 07-04 00:38 → 4EST 07-04 01:23
PROVIDERS: ADMIT Family Medicine; ATTEND Hospitalist
PROC: 0WJG3ZZ Inspection of Peritoneal Cavity, Percutaneous Approach (ICD-10-PCS; principal; 2019-07-04)
DX: K29.21 Alcoholic gastritis with bleeding (principal); I85.11 Secondary esophageal varices with bleeding; K65.2 Spontaneous bacterial peritonitis; D62 Acute posthemorrhagic anemia; K76.6 Portal hypertension; D61.818 Other pancytopenia; E87.6 Hypokalemia; F17.210 Nicotine dependence, cigarettes, uncomplicated; I10 Essential (primary) hypertension; K31.89 Other diseases of stomach and duodenum; K70.11 Alcoholic hepatitis with ascites; K70.31 Alcoholic cirrhosis of liver with ascites; F10.20 Alcohol dependence, uncomplicated; Z66 Do not resuscitate; F41.9 Anxiety disorder, unspecified; Y90.9 Presence of alcohol in blood, level not specified; Z63.8 Other specified problems related to primary support group; Z90.49 Acquired absence of other specified parts of digestive tract; Z79.899 Other long term (current) drug therapy; Z88.0 Allergy status to penicillin; Z88.8 Allergy status to other drugs, medicaments and biological substances
CPT/HCPCS: 36415; 96374; 96375; 99285; J3490; 49083; 80048; 80053; 80307; 83690; 83735; 84100; 85014; 85018; 85025; 85610; 86900; 93005; G0378; J0696; J2354; J2405; J3411; J3480; C9113; J1940; J2270; J7040; J7050

== ENCOUNTER 2019-08-15 19:20 | Inpatient (IN) | payer MEDICAID ==
[~2019-08-15] VITALS: Ht 162.6 cm; Wt 58.0 kg
[~2019-08-15 19:20] MED LIST changes: +ACAM333T7 PO; +ONDA8TAB9 PO; +OXYC5CAP2 PO; +SERT50TA28 PO; +propranolol PO
[2019-08-15] MEDS ORDERED: PANTOPRAZOLE 80 MG in SODIUM CHLORIDE 0.9% 50 ML IVPB ONE (19:44)
[2019-08-15] MEDS ORDERED: METOCLOPRAMIDE 5 MG/ML, 2ML ONE (19:52)
[2019-08-15] MEDS ORDERED: PANTOPRAZOLE 40 MG IV ONE (19:53)
[2019-08-15] MEDS ORDERED: MORPHINE SULFATE 4 MG/ML, 1ML ONE (19:53)
[2019-08-15] MEDS ORDERED: MORPHINE SULFATE 4 MG/ML, 1ML IVPush PRN (20:00)
[2019-08-15] MEDS ORDERED: SODIUM CHLORIDE 0.9% 1,000ML IVBOLUS ONE (20:00)
[2019-08-15] MEDS ORDERED: SODIUM CHLORIDE FLUSH 10ML SYR IVF ONE (20:00)
[2019-08-15] MEDS ORDERED: METOCLOPRAMIDE 5 MG/ML, 2ML IVPush ONE (20:00)
[2019-08-15 20:38] LABS: ALANINE AMINOTRANSFERASE 50 U/L (12-78); ALBUMIN 3.5 g/dL (3.4-5.0); ANION GAP 10 mmol/L (5-15); CALCIUM 8.4 mg/dL (8.5-10.1); CHLORIDE 105 mmol/L (98-107); CREATININE 0.66 mg/dL (0.55-1.02)
[2019-08-15 20:49] LABS: ALKALINE PHOSPHATASE 135 U/L (45-117); BILIRUBIN,TOTAL 1.3 mg/dL (0.2-1.0); TOTAL PROTEIN 9.2 g/dL (6.4-8.2)
[2019-08-15] MEDS: PANTOPRAZOLE 80 MG in SODIUM CHLORIDE 0.9% 100 ML IV SCH (20:57)
[2019-08-15 21:03] LABS: MD YES; MEAN CORPUSCULAR HEMOGLOBIN 22.8 pg (27.0-34.8); MEAN CORPUSCULAR HGB CONC 31.3 g/dL (32.4-35.8); MEAN PLATELET VOLUME 8.7 fL (7.4-10.4); PLATELET COUNT 67 x10^3/uL (130-400); RED BLOOD COUNT 5.14 x10^6/uL (3.82-5.3); RED CELL DISTRIBUTION WIDTH 22.8 % (9.6-15.2)
--- NOTE | 2019-08-15 21:03 | NUR ---
IVS STARTED. PROTONIX BOLUS GIVEN. PROTONIX DRIP AND IVF BOLUS INFUSING. VSS. NO VOMITING WHILE IN ER. PT GIVEN WARM BLANKETS AND PLACED ON 2L. WHEN SLEEPING 89% ON RA. PT DENIES ANY CURRENT NEEDS. WILL CONTINUE TO MONITOR.
[2019-08-15] MEDS ORDERED: POTASSIUM CHLORIDE 20 MEQ in SODIUM CHLORIDE 0.9% 1,000 ML IV ONE (21:30)
[2019-08-15] MEDS ORDERED: SODIUM CHLORIDE FLUSH 10ML SYR IVF PRN (21:30)
[2019-08-15 21:35] LABS: BASOPHILS # (AUTO) 0.01 x10^3/uL (0-0.1); BASOPHILS % (AUTO) 0 % (0-1); EOSINOPHILS # (AUTO) 0.06 x10^3/uL (0-0.4); EOSINOPHILS % (AUTO) 1 % (1-7); LYMPHOCYTES # (AUTO) 1.13 x10^3/uL (1-3.4); LYMPHOCYTES % (AUTO) 23 % (22-44); MONOCYTES # (AUTO) 0.24 x10^3/uL (0.2-0.8); MONOCYTES % (AUTO) 5 % (2-9); NEUTROPHILS # (AUTO) 3.48 x10^3/uL (1.8-6.8); NEUTROPHILS % (AUTO) 71 % (42-75)
[2019-08-15 21:40] LABS: BAND#(MANUAL) 0.05 x10^3/uL; BANDS%(MANUAL) 1 % (0-7); BASOS#(MANUAL) 0.05 x10^3/uL (0-0.1); BASOS% (MANUAL) 1 % (0-1); LYMPH#(MANUAL) 0.93 x10^3/uL (1-3.4); LYMPHS% (MANUAL) 19 % (22-44); MONOS#(MANUAL) 0.05 x10^3/uL (0.3-2.7); MONOS% (MANUAL) 1 % (2-9); SEG#(MANUAL) 3.82 x10^3/uL (1.8-6.8); SEGS% (MANUAL) 78 % (42-75)
[2019-08-15 21:41] LABS: ANISOCYTOSIS 1+; HYPOCHROMIA 1+; MICROCYTOSIS 1+
[2019-08-15 21:42] LABS: INTERNATIONAL NORMALIZED RATIO 1.25 (0.93-1.1); OVALOCYTES 1+; POLYCHROMASIA 1+; PROTHROMBIN TIME 13.3 Seconds (9.6-11.5)
[2019-08-15 21:43] LABS: <PLATELET ESTIMATE> DECREASED; <PLT MORPHOLOGY> NORMAL PLT MORPH
[2019-08-15] MEDS ORDERED: FOLIC ACID 5 MG/ML IM ONE (22:00)
[2019-08-15] MEDS ORDERED: ONDANSETRON 2MG/ML, 2ML IVPush PRN (22:00)
[2019-08-15] MEDS ORDERED: METOCLOPRAMIDE 5 MG/ML, 2ML IVPush PRN (22:00)
[2019-08-15] MEDS ORDERED: LORazepam 2 MG/ML, 1ML IV PRN ×5 (22:00)
[2019-08-15] MEDS ORDERED: hydrALAzine 20 MG/ML, 1ML IVPush PRN (22:00)
[2019-08-15] MEDS ORDERED: NS + 20MEQ KCL 1,000 ML IV ONE (22:25)
--- NOTE | 2019-08-15 22:31 | NUR ---
REPORT GIVEN TO OWEN MCKENNA ON 4TH FLOOR. PT IS AGREEABLE TO PLAN OF CARE. ALL QUESTIONS ANSWERED. MAINTENANCE FLUIDS STARTED.
[2019-08-15 22:58] VITALS: BP 118/69
[2019-08-15] MEDS: SODIUM CHLORIDE 0.9% 1,000 ML IV SCH (23:30)
[2019-08-15] MEDS: CEFTRIAXONE PMX 1GM/50ML 50 ML IV SCH (23:30)
[2019-08-16] MEDS: OCTREOTIDE 500 MCG in SODIUM CHLORIDE 0.9% 99 ML IV SCH ×3 (00:27→18:03)
[2019-08-16] MEDS: MORPHINE SULFATE 4 MG/ML, 1ML IVPush PRN ×5 (00:27→22:28)
[2019-08-16 05:53] LABS: INTERNATIONAL NORMALIZED RATIO 1.35 (0.93-1.1); PROTHROMBIN TIME 14.3 Seconds (9.6-11.5)
[2019-08-16 05:58] LABS: ANION GAP 11 mmol/L (5-15); CALCIUM 7.6 mg/dL (8.5-10.1); CHLORIDE 112 mmol/L (98-107); CREATININE 0.59 mg/dL (0.55-1.02)
[2019-08-16 06:01] LABS: MEAN CORPUSCULAR HEMOGLOBIN 22.7 pg (27.0-34.8); MEAN CORPUSCULAR HGB CONC 30.2 g/dL (32.4-35.8); MEAN CORPUSCULAR VOLUME 75.2 fL (80-100); RED BLOOD COUNT 4.42 x10^6/uL (3.82-5.3); RED CELL DISTRIBUTION WIDTH 22.5 % (9.6-15.2)
[2019-08-16 06:53] LABS: MEAN PLATELET VOLUME 8.5 fL (7.4-10.4); PLATELET COUNT 55 x10^3/uL (130-400)
[2019-08-16] MEDS: PANTOPRAZOLE 80 MG in SODIUM CHLORIDE 0.9% 100 ML IV SCH ×2 (06:53→15:05)
[2019-08-16 07:24] VITALS: BP 121/70
[2019-08-16 07:24] LABS: BASOPHILS # (AUTO) 0.01 x10^3/uL (0-0.1); BASOPHILS % (AUTO) 0 % (0-1); EOSINOPHILS # (AUTO) 0.01 x10^3/uL (0-0.4); EOSINOPHILS % (AUTO) 0 % (1-7); LYMPHOCYTES # (AUTO) 0.58 x10^3/uL (1-3.4); LYMPHOCYTES % (AUTO) 18 % (22-44); MD SCAN; MONOCYTES % (AUTO) 9 % (2-9); NEUTROPHILS # (AUTO) 2.35 x10^3/uL (1.8-6.8); NEUTROPHILS % (AUTO) 72 % (42-75)
[2019-08-16 08:59] LABS: HCG UR SG 1.008 (1.003-1.030)
[2019-08-16] MEDS: SODIUM CHLORIDE 0.9% 1,000 ML IV SCH (09:36)
[2019-08-16 09:51] LABS: MICROSCOPIC NOT IND
[2019-08-16 10:09] LABS: ABSOLUTE RETICS # 0.075 x10^6/uL (0.5-2.5); RED BLOOD COUNT 4.54 x10^6/uL (3.82-5.3); RETICULOCYTE COUNT % 1.65 % (0.5-1.5)
[2019-08-16 14:17] VITALS: BP 124/67
[2019-08-16 19:57] VITALS: BP 122/73
[2019-08-16] MEDS: CEFTRIAXONE PMX 1GM/50ML 50 ML IV SCH (23:16)
[2019-08-17] VITALS (10 sets, daily range): BP systolic 125–154; BP diastolic 69–90
[2019-08-17] MEDS: SODIUM CHLORIDE 0.9% 1,000 ML IV SCH ×2 (01:27→13:54)
[2019-08-17] MEDS: PANTOPRAZOLE 80 MG in SODIUM CHLORIDE 0.9% 100 ML IV SCH ×3 (02:49→23:32)
[2019-08-17] MEDS: MORPHINE SULFATE 4 MG/ML, 1ML IVPush PRN ×5 (02:49→20:49)
[2019-08-17] MEDS: OCTREOTIDE 500 MCG in SODIUM CHLORIDE 0.9% 99 ML IV SCH (04:00)
[2019-08-17 05:41] LABS: ALANINE AMINOTRANSFERASE 43 U/L (12-78); ALBUMIN 2.5 g/dL (3.4-5.0); ANION GAP 5 mmol/L (5-15); CALCIUM 7.6 mg/dL (8.5-10.1); CHLORIDE 106 mmol/L (98-107); CREATININE 0.63 mg/dL (0.55-1.02)
[2019-08-17 05:44] LABS: ALKALINE PHOSPHATASE 94 U/L (45-117); BILIRUBIN,TOTAL 1.6 mg/dL (0.2-1.0); TOTAL PROTEIN 6.8 g/dL (6.4-8.2)
[2019-08-17 06:05] LABS: BASOPHILS # (AUTO) 0.02 x10^3/uL (0-0.1); BASOPHILS % (AUTO) 1 % (0-1); EOSINOPHILS # (AUTO) 0.02 x10^3/uL (0-0.4); EOSINOPHILS % (AUTO) 1 % (1-7); LYMPHOCYTES # (AUTO) 0.65 x10^3/uL (1-3.4); LYMPHOCYTES % (AUTO) 33 % (22-44); MD SCAN; MEAN CORPUSCULAR HEMOGLOBIN 22.9 pg (27.0-34.8); MEAN CORPUSCULAR HGB CONC 31.1 g/dL (32.4-35.8); MEAN CORPUSCULAR VOLUME 73.7 fL (80-100); MEAN PLATELET VOLUME 8.5 fL (7.4-10.4); MONOCYTES # (AUTO) 0.22 x10^3/uL (0.2-0.8); MONOCYTES % (AUTO) 11 % (2-9); NEUTROPHILS # (AUTO) 1.09 x10^3/uL (1.8-6.8); NEUTROPHILS % (AUTO) 55 % (42-75); RED BLOOD COUNT 3.99 x10^6/uL (3.82-5.3); RED CELL DISTRIBUTION WIDTH 21.8 % (9.6-15.2)
[2019-08-17 06:07] LABS: PLATELET COUNT 29 x10^3/uL (130-400)
[2019-08-17] MEDS ORDERED: THIAMINE 100 MG in DEXTROSE 5% 50 ML IVPB SCH (09:00)
[2019-08-17] MEDS ORDERED: NICOTINE 14MG/24 HR PATCH.TD24 TD ONE (14:00)
[2019-08-17] MEDS ORDERED: CHLORHEXIDINE 15 ML UDC ONE (14:55)
[2019-08-17] MEDS ORDERED: FENTANYL PF 100 MCG/2ML ONE (15:20)
[2019-08-17] MEDS ORDERED: LIDOCAINE-MPF 2% ,5ML ONE (15:26)
[2019-08-17] MEDS ORDERED: SUCCINYLCHOLINE 20 MG/ML, 10ML ONE (15:26)
[2019-08-17] MEDS ORDERED: ONDANSETRON 2MG/ML, 2ML ONE (15:44)
[2019-08-17] MEDS ORDERED: DEXAMETHASONE 4 MG/ML, 1ML ONE (15:44)
[2019-08-17] MEDS ORDERED: PROPOFOL 10 MG/ML, 20ML ONE (15:44)
[2019-08-17] MEDS ORDERED: PROMETHAZINE 25 MG/ML, 1ML IVPush PRN (16:00)
[2019-08-17] MEDS ORDERED: MIDAZOLAM 1 MG/ML, 2ML IV PRN (16:00)
[2019-08-17] MEDS ORDERED: hydrALAzine 20 MG/ML, 1ML IV PRN (16:00)
[2019-08-17] MEDS ORDERED: OXYcodone 5 MG/5 ML ORAL.SOL UDC PO PRN (16:00)
[2019-08-17] MEDS ORDERED: LABETALOL 5MG/ML, 20ML IV PRN (16:00)
[2019-08-17] MEDS ORDERED: ALBUTEROL SULFATE 2.5 MG/3 ML NPPB PRN (16:00)
[2019-08-17] MEDS ORDERED: FENTANYL PF 100 MCG/2ML IV PRN (16:00)
[2019-08-17] MEDS: LORazepam 0.5MG TABLET PO PRN (22:52)
[2019-08-17] MEDS: CEFTRIAXONE PMX 1GM/50ML 50 ML IV SCH (22:53)
[2019-08-18] MEDS: MORPHINE SULFATE 4 MG/ML, 1ML IVPush PRN ×2 (01:49→06:05)
[2019-08-18 02:14] VITALS: BP 149/76
[2019-08-18] MEDS: SODIUM CHLORIDE 0.9% 1,000 ML IV SCH (04:30)
[2019-08-18] MEDS: LORazepam 0.5MG TABLET PO PRN (05:51)
[2019-08-18 06:13] LABS: ALBUMIN 2.7 g/dL (3.4-5.0); ANION GAP 4 mmol/L (5-15); CALCIUM 8.3 mg/dL (8.5-10.1); CHLORIDE 106 mmol/L (98-107)
[2019-08-18 06:17] LABS: ALANINE AMINOTRANSFERASE 41 U/L (12-78); ALKALINE PHOSPHATASE 110 U/L (45-117); BILIRUBIN,TOTAL 1.2 mg/dL (0.2-1.0); CREATININE 0.62 mg/dL (0.55-1.02); TOTAL PROTEIN 7.5 g/dL (6.4-8.2)
[2019-08-18 06:46] LABS: MEAN CORPUSCULAR HEMOGLOBIN 22.7 pg (27.0-34.8); MEAN CORPUSCULAR HGB CONC 30.9 g/dL (32.4-35.8); MEAN CORPUSCULAR VOLUME 73.7 fL (80-100); MEAN PLATELET VOLUME 10.2 fL (7.4-10.4); RED BLOOD COUNT 4.25 x10^6/uL (3.82-5.3)
[2019-08-18 06:48] LABS: MD YES
[2019-08-18 06:56] LABS: PLATELET COUNT 49 x10^3/uL (130-400)
[2019-08-18 06:59] LABS: BAND#(MANUAL) 0.04 x10^3/uL; BANDS%(MANUAL) 2 % (0-7); LYMPH#(MANUAL) 0.23 x10^3/uL (1-3.4); LYMPHS% (MANUAL) 12 % (22-44); MONOS#(MANUAL) 0.02 x10^3/uL (0.3-2.7); MONOS% (MANUAL) 1 % (2-9); SEG#(MANUAL) 1.62 x10^3/uL (1.8-6.8); SEGS% (MANUAL) 85 % (42-75)
[2019-08-18 07:00] LABS: ANISOCYTOSIS 1+; HYPOCHROMIA 1+; MICROCYTOSIS 1+; OVALOCYTES 1+; POLYCHROMASIA 1+
[2019-08-18 07:01] LABS: <PLATELET ESTIMATE> DECREASED; <PLT MORPHOLOGY> NORMAL PLT MORPH
[2019-08-18 08:25] VITALS: BP 122/72
[2019-08-18] MEDS ORDERED: PANTOPRAZOLE 20MG TABLET PO SCH (08:30)
[2019-08-18] MEDS ORDERED: THIAMINE 100MG TABLET PO SCH (09:00)
[2019-08-18 12:31] LABS: MEAN CORPUSCULAR HEMOGLOBIN 22.8 pg (27.0-34.8); MEAN CORPUSCULAR VOLUME 73.6 fL (80-100); MEAN PLATELET VOLUME 8.1 fL (7.4-10.4); PLATELET COUNT 55 x10^3/uL (130-400); RED BLOOD COUNT 4.62 x10^6/uL (3.82-5.3); RED CELL DISTRIBUTION WIDTH 21.9 % (9.6-15.2)
[2019-08-18 12:45] LABS: BASOPHILS % (AUTO) 0 % (0-1); EOSINOPHILS % (AUTO) 0 % (1-7); LYMPHOCYTES # (AUTO) 0.33 x10^3/uL (1-3.4); LYMPHOCYTES % (AUTO) 7 % (22-44); MD SCAN; MONOCYTES # (AUTO) 0.42 x10^3/uL (0.2-0.8); MONOCYTES % (AUTO) 8 % (2-9); NEUTROPHILS # (AUTO) 4.28 x10^3/uL (1.8-6.8); NEUTROPHILS % (AUTO) 85 % (42-75)
[2019-08-18] MEDS ORDERED: CEPH-368 PO (12:53)
== END 2019-08-18 15:24 | disposition home or self-care (01) | DRG 378 ==
LOC: ED 19:59 → EDIP 21:43 → 4WST 22:45
PROVIDERS: ADMIT Internal Medicine; ATTEND Internal Medicine
PROC: 30233R1 Transfusion of Nonautologous Platelets into Peripheral Vein, Percutaneous Approach (ICD-10-PCS; 2019-08-17)
PROC: 0DJ08ZZ Inspection of Upper Intestinal Tract, Via Natural or Artificial Opening Endoscopic (ICD-10-PCS; principal; 2019-08-17 16:30)
DX: K29.21 Alcoholic gastritis with bleeding (principal); F10.221 Alcohol dependence with intoxication delirium; K76.6 Portal hypertension; D61.818 Other pancytopenia; F17.200 Nicotine dependence, unspecified, uncomplicated; G89.29 Other chronic pain; I10 Essential (primary) hypertension; K31.89 Other diseases of stomach and duodenum; K70.11 Alcoholic hepatitis with ascites; Y90.8 Blood alcohol level of 240 mg/100 ml or more; Z91.14 Patient's other noncompliance with medication regimen; K70.30 Alcoholic cirrhosis of liver without ascites; Z88.0 Allergy status to penicillin; Z88.8 Allergy status to other drugs, medicaments and biological substances
CPT/HCPCS: 36415; 96365; 96375; 99285; J3490; 36430; 74176; 80048; 80053; 80307; 81003; 81025; 82140; 82728; 83540; 83550; 83605; 83690; 83735; 84100; 84703; 85025; 85045; 85049; 85610; 85730; 86850; 86900; G0378; J0696; J1100; J2354; J2405; J2704; J3010; J3411; C9113; J0330; J2060; J2270; J2765; J7030; P9035